=== PATIENT | female | born 1955 | race African-American/Black ===

== ENCOUNTER 2016-10-07 13:47 | Inpatient (IN) ==
[2016-10-07] MEDS ORDERED: ASPIRIN PO STA (13:59)
[2016-10-07 14:09] LABS: BLOOD TYPE ARTERIAL; DRAW SITE L BRACHIAL; METHB 0.8 % (0.0-1.5); O2(CT) 13.8 mL/dL (15.0-23.0); PO2(98.6) 54 mmHg (60-100); SAMPLE BLOOD; SAO2 70.6 % (95.0-100.0); THB 14.9 g/dL (11.5-17.4)
[2016-10-07 14:10] LABS: MANUAL DIFF NEEDED? NO
[2016-10-07] MEDS ORDERED: NITROGLYCERIN TOP ONE (14:11)
[2016-10-07] MEDS ORDERED: LASIX IV ONE (14:11)
[2016-10-07] MEDS ORDERED: MORPHINE ONE (14:15)
[2016-10-07] MEDS ORDERED: MORPHINE IV ONE (14:15)
[2016-10-07 14:21] LABS: BASO% 0.5 % (0.0-0.8); EOS# 0.34 X1000 (0.0-0.7); EOS% 2.2 % (0.0-10.0); HEMATOCRIT 49.1 % (37.0-47.0); HEMOGLOBIN 15.3 g/dL (12.0-16.0); IMM GRAN# 0.08 X1000 (0.0-0.04); IMM GRAN% 0.5 % (0.0-0.5); LYMPH# 8.95 X1000 (1.2-3.4); LYMPH% 58.9 % (20.5-51.1); MCH 31.7 PG (27-31); MCHC 31.2 g/dL (33-37); MCV 101.7 FL (81-99); MONO# 1.02 X1000 (0.11-0.59); MONO% 6.7 % (1.7-9.3); MPV 10.5 FL (7.4-10.4); NEUT% 31.2 % (42.2-75.2); PLT 319 X1000 (130-400); RBC 4.83 XMIL (4.2-5.4)
[2016-10-07 14:27] LABS: PCO2(98.6) 87 mmHg (35-45); pH(98.6) < 6.80 (7.35-7.45)
[2016-10-07 14:32] LABS: ALLEN TEST YES; MODALITY AMBU BAG
[2016-10-07 14:32] LABS: URINE SOURCE CATH
[2016-10-07 14:44] LABS: UR AMPHETAMINES QUAL NONE DETECTED (NONE DETECT); UR BARBITUATES QUAL NONE DETECTED (NONE DETECT); UR BENZODIAZEPIN QUAL NONE DETECTED (NONE DETECT); UR CANNABINOIDS QUAL PRESUMPTIVE POSITIVE (NONE DETECT); UR COCAINE QUAL NONE DETECTED (NONE DETECT); UR MDMA QUAL NONE DETECTED (NONE DETECT); UR METHADONE QUAL NONE DETECTED (NONE DETECT); UR METHAMPHETAMINE QUAL NONE DETECTED (NONE DETECT); UR OPIATES QUAL NONE DETECTED (NONE DETECT); UR OXYCODONE QUAL NONE DETECTED (NONE DETECT); UR PCP QUAL NONE DETECTED (NONE DETECT); UR TCA QUAL NONE DETECTED (NONE DETECT)
[2016-10-07 14:47] LABS: ALBUMIN 4.1 g/dL (3.5-5.0); CALCIUM 9.4 mg/dL (8.8-10.2); MAGNESIUM 2.4 mg/dL (1.5-2.7); POTASSIUM 3.5 mmol/L (3.5-5.1); TOTAL BILIRUBIN 0.2 mg/dL (0.20-1.00); TOTAL PROTEIN 8.1 g/dL (6.3-8.3)
[2016-10-07 14:47] LABS: BE -10.8 mmoll (-3.0-3.0); BLOOD TYPE ARTERIAL; DRAW SITE R RADIAL; METHB 1.1 % (0.0-1.5); O2(CT) 17.7 mL/dL (15.0-23.0); PCO2(98.6) 51 mmHg (35-45); PO2(98.6) 62 mmHg (60-100); SAMPLE BLOOD; SAO2 90.9 % (95.0-100.0); THB 15.3 g/dL (11.5-17.4); pH(98.6) 7.16 (7.35-7.45)
[2016-10-07 14:48] LABS: BILIRUBIN URINE NEGATIVE (NEGATIVE); BLOOD URINE 1+ (NEGATIVE); CLARITY CLEAR (CLEAR); COLOR YELLOW; LEUKOCYTES URINE NEGATIVE (NEGATIVE); NITRITE URINE NEGATIVE (NEGATIVE); UROBILINOGEN URINE NORMAL
--- NOTE | 2016-10-07 14:51 | PROVIDER DOCUMENTATION ---
HPI-General Adult - General Chief Complaint: Chest Pain Stated Complaint: N/V Time Seen by Provider: 10/07/16 14:00 Source: family Allergies/Adverse Reactions: Patient Allergies Allergy/AdvReac Type Severity Reaction Status Date / Time No Known Allergies Allergy Verified 05/21/13 03:45 - History of Present Illness -Gen Adult Nature of Presenting Problems: Pt is 61 y/o F presents to the ED with N/V. Pt's family member states Pt came in for N and V then patient stated having chest pain and collapsed and became unresponsive. Pt had blood sugar of 165 at 1402. Pt had a BP of 262/117 at 1405. Location of Pain/Injury: reports: chest Pain Radiation: reports: no radiation Quality of Pain: reports: pressure Severity: reports: moderate Onset/Duration: reports: abrupt Timing: reports: still present, intermittent Context/Activities at Onset: reports: light activity Modifying Factors: improves with: nothing Associated Symptoms: reports: chest pain, nausea, shortness of breath, vomiting . denies: arm pain, back/neck pain, cough, diarrhea, fever/chills, loss of appetite, sinus congestion/drainage Similar Symptoms Previously?: No Recently seen or treated by another doctor?: No Review of Systems - Adult - REVIEW OF SYSTEMS - ADULT Constitutional: denies: chills, fever Eyes: denies: blurred vision, double vision Ears, Nose, Mouth & Throat: denies: ear pain, nose pain, throat pain Cardiovascular: reports: chest pain, irregular heart rate (tachy). denies: heart murmur Respiratory: reports: shortness of breath. denies: cough, wheezing Gastrointestinal: reports: nausea, vomiting. denies: abdominal pain, diarrhea Genitourinary: denies: dysuria, hematuria Musculoskeletal: denies: bone pain, joint pain, neck pain Integumentary: denies: hives, itching Neurological: denies: dizziness/vertigo, headache/migraines Psychiatric: reports: no symptoms reported Endocrine: reports: no symptoms reported Hematologic/Lymphatic: reports: no symptoms reported Allergic/Immunologic: reports: no symptoms reported All Other Systems: Reviewed and Negative Past History - Adult - PAST MEDICAL HISTORY-ADULT Review of Records: reports: Nursing Assessment Review, Medications Reviewed, Social history reviewed & non-contributory. Major Childhood Illnesses: reports: denies history Cardiovascular: reports: denies history Respiratory: reports: denies history Gastrointestinal: reports: denies history Obstetrical/Gynecological: reports: denies history Genitourinary: reports: denies history Musculoskeletal: reports: denies history Neurological: reports: denies history Endocrine/Immune: reports: denies history Other Conditions: reports: denies history - PRIOR SURGERIES/PROCEDURES Surgical/Procedure History: reports: reviewed, not pertinent - IMMUNIZATION STATUS Childhood Immunizations: See Nurse Assessment Flu Vaccine: See Nurse Assessment - FAMILY HISTORY Family History: reviewed, not pertinent - SOCIAL HISTORY Smoking: cigarettes, less than 1 pack/day Provider spent 3-5 mins advising pt. on dangers of tobacco.: Discussed manners to quit use, and f/u contacts for add'l counseling. Substance Use: denies Living Situation: family Physical Exam-General - PHYSICAL EXAM-ADULT Initial Vital Signs Reviewed: Yes - CONSTITUTIONAL General Appearance: moderate distress. negative: appears well (ill in appearance) - EYES Eyes: PERRL/EOMI, pink conjunctivae - HEAD, EARS, NOSE, MOUTH & THROAT HENMT: normocephalic/atraumatic, normal ENT inspection. negative: moist mucous membranes (dry) - NECK Neck: non-tender, full range of motion, normal inspection - RESPIRATORY Respiratory: chest non-tender, lungs clear, respiratory distress, increased rate - CARDIOVASCULAR Cardiovascular: normal peripheral pulses, no edema, tachycardia - GASTROINTESTINAL (ABDOMEN) Abdominal Exam: normal bowel sounds, non tender, soft - LYMPHATIC Lymphatic: no adenopathy - MUSCULOSKELETAL Back Exam: normal inspection, no CVA tenderness, no vertebral tenderness Extremity: normal range of motion, non-tender, normal gait - SKIN Integumentary: normal color, normal turgor, warm/dry - PSYCHIATRIC Psych/Mental Status: disoriented x 3 Progress - PLAN OF CARE/RESULTS Progress/Plan/Lab Results: Laboratory Tests 10/07/16 10/07/16 10/07/16 14:04 14:04 14:04 WBC RBC Hgb Hct MCV MCH MCHC RDW Std Deviation Plt Count MPV Immature Gran % (Auto) Neut % (Auto) Lymph % (Auto) [place] % (Auto) Eos % (Auto) Baso % (Auto) Immature Gran # (Auto) Neut # (Auto) Lymph # (Auto) [place] # (Auto) Eos # (Auto) Baso # (Auto) PT INR APTT (Factor Assay) D-Dimer Specimen Type Sample Site pH pCO2 pO2 HCO3 Base Excess Oxyhemoglobin ABG O2 Sat (Calculated) ABG O2 Saturation ABG Carboxyhemoglobin ABG Methemoglobin Lit Test A-a O2 Difference Total Hemoglobin Lactate Liter Flow Blood Gas Modality FiO2 % Pressure Support Inspiratory BiPAP Expiratory BiPAP Sodium 139 Potassium 3.5 Chloride 99 Carbon Dioxide 13 L Anion Gap 27 BUN 20 Creatinine 1.3 H Estimated GFR/1.73 m2 42 BUN/Creatinine Ratio 15 Glucose 320 H Calculated Osmolality 292 Calcium 9.4 Magnesium 2.4 Total Bilirubin 0.20 AST 30 ALT 22 Alkaline Phosphatase 110 H Creatine Kinase 160 Troponin T < 0.010 [id number]-Unrydlhlgvy Pept 371 H Total Protein 8.1 Albumin 4.1 Globulin 4.0 Albumin/Globulin Ratio 1.0 Plasma Lactate Urine Source Urine Color Urine Clarity Urine pH Ur Specific Loyal Urine Protein Urine Ketones Urine Blood Urine Nitrite Urine Bilirubin Urine Urobilinogen Urine Microscopic RBC Urine WBC Urine Microscopic WBC Ur Epithelial Cells Urine Bacteria Urine Glucose Urine Opiates Screen Ur Oxycodone Screen Urine Methadone Screen Ur Barbituates Screen Ur Tricyclics Screen Ur Phencyclidine Scrn Ur Amphetamines Screen U Methamphetamines Scrn Urine MDMA Screen U Benzodiazepines Scrn Urine Cocaine Screen U Cannabinoids Screen 10/07/16 10/07/16 10/07/16 14:04 14:04 14:04 WBC 15.19 H RBC 4.83 Hgb 15.3 Hct 49.1 H MCV 101.7 H MCH 31.7 H MCHC 31.2 L RDW Std Deviation 12.6 Plt Count 319 MPV 10.5 H Immature Gran % (Auto) 0.5 Neut % (Auto) 31.2 L Lymph % (Auto) 58.9 H [place] % (Auto) 6.7 Eos % (Auto) 2.2 Baso % (Auto) 0.5 Immature Gran # (Auto) 0.08 H Neut # (Auto) 4.73 Lymph # (Auto) 8.95 H [place] # (Auto) 1.02 H Eos # (Auto) 0.34 Baso # (Auto) 0.07 PT 14.6 INR 1.11 APTT (Factor Assay) 29.9 D-Dimer 1.07 H Specimen Type Sample Site pH pCO2 pO2 HCO3 Base Excess Oxyhemoglobin ABG O2 Sat (Calculated) ABG O2 Saturation ABG Carboxyhemoglobin ABG Methemoglobin Lit Test A-a O2 Difference Total Hemoglobin Lactate Liter Flow Blood Gas Modality FiO2 % Pressure Support Inspiratory BiPAP Expiratory BiPAP Sodium Potassium Chloride Carbon Dioxide Anion Gap BUN Creatinine Estimated GFR/1.73 m2 BUN/Creatinine Ratio Glucose Calculated Osmolality Calcium Magnesium Total Bilirubin AST ALT Alkaline Phosphatase Creatine Kinase Troponin T [id number]-Eazlbsjkdmb Pept Total Protein Albumin Globulin Albumin/Globulin Ratio Plasma Lactate 11.6 H Urine Source Urine Color Urine Clarity Urine pH Ur Specific Loyal Urine Protein Urine Ketones Urine Blood Urine Nitrite Urine Bilirubin Urine Urobilinogen Urine Microscopic RBC Urine WBC Urine Microscopic WBC Ur Epithelial Cells Urine Bacteria Urine Glucose Urine Opiates Screen Ur Oxycodone Screen Urine Methadone Screen Ur Barbituates Screen Ur Tricyclics Screen Ur Phencyclidine Scrn Ur Amphetamines Screen U Methamphetamines Scrn Urine MDMA Screen U Benzodiazepines Scrn Urine Cocaine Screen U Cannabinoids Screen 10/07/16 10/07/16 10/07/16 14:06 14:18 14:18 WBC RBC Hgb Hct MCV MCH MCHC RDW Std Deviation Plt Count MPV Immature Gran % (Auto) Neut % (Auto) Lymph % (Auto) [place] % (Auto) Eos % (Auto) Baso % (Auto) Immature Gran # (Auto) Neut # (Auto) Lymph # (Auto) [place] # (Auto) Eos # (Auto) Baso # (Auto) PT INR APTT (Factor Assay) D-Dimer Specimen Type ARTERIAL Sample Site L BRACHIAL pH < 6.80 L* pCO2 87 H* pO2 54 L HCO3 Base Excess Oxyhemoglobin 65.7 L* ABG O2 Sat (Calculated) 13.8 L ABG O2 Saturation 70.6 L ABG Carboxyhemoglobin 6.10 H* ABG Methemoglobin 0.8 Lit Test YES A-a O2 Difference 550.0 Total Hemoglobin 14.9 Lactate 14.80 H* Liter Flow 15.0 Blood Gas Modality AMBU BAG FiO2 % 100.0 Pressure Support Inspiratory BiPAP Expiratory BiPAP Sodium Potassium Chloride Carbon Dioxide Anion Gap BUN Creatinine Estimated GFR/1.73 m2 BUN/Creatinine Ratio Glucose Calculated Osmolality Calcium Magnesium Total Bilirubin AST ALT Alkaline Phosphatase Creatine Kinase Troponin T [id number]-G-Uhsqhvtjmsm Pept Total Protein Albumin Globulin Albumin/Globulin Ratio Plasma Lactate Urine Source CATH Urine Color YELLOW Urine Clarity CLEAR Urine pH 6.0 Ur Specific Loyal 1.020 Urine Protein 3+(500 mg/dL) A Urine Ketones NEGATIVE Urine Blood 1+ A Urine Nitrite NEGATIVE Urine Bilirubin NEGATIVE Urine Urobilinogen NORMAL Urine Microscopic RBC <10 Urine WBC NEGATIVE Urine Microscopic WBC <10 Ur Epithelial Cells <10 Urine Bacteria 1+ Urine Glucose 1+(100 mg/dL) A Urine Opiates Screen NONE DETECTED Ur Oxycodone Screen NONE DETECTED Urine Methadone Screen NONE DETECTED Ur Barbituates Screen NONE DETECTED Ur Tricyclics Screen NONE DETECTED Ur Phencyclidine Scrn NONE DETECTED Ur Amphetamines Screen NONE DETECTED U Methamphetamines Scrn NONE DETECTED Urine MDMA Screen NONE DETECTED U Benzodiazepines Scrn NONE DETECTED Urine Cocaine Screen NONE DETECTED U Cannabinoids Screen PRESUMPTIVE POSITIVE A 10/07/16 14:38 WBC RBC Hgb Hct MCV MCH MCHC RDW Std Deviation Plt Count MPV Immature Gran % (Auto) Neut % (Auto) Lymph % (Auto) [place] % (Auto) Eos % (Auto) Baso % (Auto) Immature Gran # (Auto) Neut # (Auto) Lymph # (Auto) [place] # (Auto) Eos # (Auto) Baso # (Auto) PT INR APTT (Factor Assay) D-Dimer Specimen Type ARTERIAL Sample Site R RADIAL pH 7.16 L* pCO2 51 H* pO2 62 HCO3 16.0 L Base Excess -10.8 L Oxyhemoglobin 82.2 L* ABG O2 Sat (Calculated) 17.7 ABG O2 Saturation 90.9 L ABG Carboxyhemoglobin 8.50 H* ABG Methemoglobin 1.1 Lit Test YES A-a O2 Difference 302.0 Total Hemoglobin 15.3 Lactate 6.80 H* Liter Flow Blood Gas Modality BI PAP FiO2 % 60.0 Pressure Support 10.00 Inspiratory BiPAP 16.0 Expiratory BiPAP 6.0 Sodium Potassium Chloride Carbon Dioxide Anion Gap BUN Creatinine Estimated GFR/1.73 m2 BUN/Creatinine Ratio Glucose Calculated Osmolality Calcium Magnesium Total Bilirubin AST ALT Alkaline Phosphatase Creatine Kinase Troponin T Fim-Z-Vqmffawgmke Pept Total Protein Albumin Globulin Albumin/Globulin Ratio Plasma Lactate Urine Source Urine Color Urine Clarity Urine pH Ur Specific Loyal Urine Protein Urine Ketones Urine Blood Urine Nitrite Urine Bilirubin Urine Urobilinogen Urine Microscopic RBC Urine WBC Urine Microscopic WBC Ur Epithelial Cells Urine Bacteria Urine Glucose Urine Opiates Screen Ur Oxycodone Screen Urine Methadone Screen Ur Barbituates Screen Ur Tricyclics Screen Ur Phencyclidine Scrn Ur Amphetamines Screen U Methamphetamines Scrn Urine MDMA Screen U Benzodiazepines Scrn Urine Cocaine Screen U Cannabinoids Screen Orders Category Date Time Status Cardiac Monitoring DIRECTED Care 10/07/16 14:00 Active Oxygen Therapy- ED Nursing DIRECTED Care 10/07/16 14:00 Active Saline Loc NOW Care 10/07/16 14:00 Active CHEST-PORTABLE [RAD] Stat Exams 10/07/16 14:00 Draft HEAD W/O CONTRAST [CT] Stat Exams 10/07/16 14:08 Taken LUNG SCAN / VQ [NM] Stat Exams 10/07/16 15:11 Ordered ABG [RESP] Routine Lab 10/07/16 14:06 Completed ABG [RESP] Routine Lab 10/07/16 14:38 Completed BLOOD CULTURE [BLDCUL] Stat Lab 10/07/16 14:13 Ordered CBC WITH ELECTRONIC DIFF [HEME] Stat Lab 10/07/16 14:04 Completed CK PROFILE [SP CHEM] Stat Lab 10/07/16 14:04 Completed COMPREHENSIVE METABOLIC PANEL [CHEM] Stat Lab 10/07/16 14:04 Completed D-DIMER PL [COAG] Stat Lab 10/07/16 14:04 Completed LACTATE, PLASMA [CHEM] Stat Lab 10/07/16 14:04 Completed MAGNESIUM [CHEM] Stat Lab 10/07/16 14:04 Completed PRO B-NATRIURETIC PEPTIDE Stat Lab 10/07/16 14:04 Completed PROTIME WITH INR PL [COAG] Stat Lab 10/07/16 14:[address] [COAG] Stat Lab 10/07/16 14:04 Completed TROPONIN T Stat Lab 10/07/16 14:[address] W/POSS RFLX CULT [URINALYSIS] Stat Lab 10/07/16 14:18 Completed URINE DRUG SCREEN PL Stat Lab 10/07/16 14:18 Completed 0.9% Sodium Chloride Inj [Ns] 1,000 ml Med 10/07/16 15:14 Active IV 999 mls/hr Albuterol 2.5MG/Ipratrop 0.5MG [Duoneb (A & A)] Med 10/07/16 15:14 Discontinued 3 ml INH NOW ONE Aspirin Med 10/07/16 13:59 Discontinued 325 mg PO STAT STA Azithromycin 500 mg/Ns [Zithromax 500 mg/Ns] 250 ml Med 10/07/16 15:13 Active IV NOW CefTRIAXONE 1 GM/NS [Rocephin 1 gm/Ns] 50 ml Med 10/07/16 15:12 Active IV NOW Furosemide [Lasix] Med 10/07/16 14:11 Discontinued 80 mg IV NOW ONE Morphine Med 10/07/16 14:15 Discontinued 2 mg .ROUTE .STK-MED ONE Morphine Med 10/07/16 14:15 Discontinued 2 mg IV NOW ONE Nitroglycerin Med 10/07/16 14:11 Discontinued 1 inch TOP NOW ONE Aerosol Treatments Routine Oth 10/07/16 15:14 Active Aerosol Treatments Stat Oth 10/07/16 15:14 Active EKG [EKG] Routine Ther 10/07/16 14:33 Ordered EKG [EKG] Stat Ther 10/07/16 14:00 Ordered EKG [EKG] Stat Ther 10/07/16 14:38 Ordered Venous U/S Bilateral Legs [CV] Routine Ther 10/07/16 15:11 Ordered Vital Signs - 24 hr 10/07/16 10/07/16 14:00 14:30 Pulse Rate 130 H 113 H Respiratory 33 H 33 H Rate Blood Pressure 181/91 185/102 O2 Sat by Pulse 57 L 94 L Oximetry - EKG 1 Time of EKG reading by physician:: 14:03 EKG Read and Signed by:: Ryan Deleon EKG Interpretation (*Must complete 3 of following elements*): Abnormal Rate: 129 Rhythm: sinus tachycardia Comments: marked ST abnormality, possible inferior subendocardial injury 2 Time of EKG reading by physician:: 14:32 EKG Read and Signed by:: Ryan Deleno EKG Interpretation (*Must complete 3 of following elements*): Abnormal Rate: 113 Rhythm: sinus tachycardia Comments: biatrial enlargement; ST & T wave abnormality, consider inferior ischemia - XRAY 1 XRAY: Bilateral XRAY Study: Chest Impression: Abnormal XRAY Interpretation: dense bilateral alveolar infiltrates Departure - Departure Time of Disposition Order: 15:26 DIAGNOSIS: Pulmonary edema Qualifiers: Chronicity: acute Qualified Code(s): J81.0 - Acute pulmonary edema HTN (hypertension) Qualifiers: Hypertension type: unspecified secondary hypertension Qualified Code(s): I15.9 - Secondary hypertension, unspecified Disposition: ADMITTED INPATIENT 09 Certified Medical Emergency: Emergent Condition: Poor Additional Instructions: ED Follow Up Instructions: You have been treated by a care provider in the Emergency Department. These instructions are being provided to you so you can have an understanding of how to care for yourself upon discharge. Upon discharge from the Emergency Department, you are responsible for making arrangements for follow-up care by a physician of your choice. Take all prescribed medications as directed. Return to the Emergency Department immediately for any new or worsening symptoms. You may call the Physician Referral phone number at [phone] to obtain a list of Physicians who are taking new patients. Referrals: None,PCP [Primary Care Provider] - Attestation - Scribe Verification/Attestation Scribe:: Pauline Roy Acting as Scribe for:: Ryan Deleon Scribe documention review:: This chart was documented by a scribe and accurately reflects the service the provider performed and the decisions made by the provider.
--- NOTE | 2016-10-07 14:57 | Diag Imaging Result Document ---
PROCEDURE NAME: CHEST-PORTABLE - 10/07/2016 CHEST SINGLE VIEW: INDICATION: Shortness of breath. FINDINGS: There are dense bilateral alveolar infiltrates. There is cardiomegaly. No definite effusion. There are postsurgical changes of the lower cervical spine. IMPRESSION: Dense bilateral alveolar infiltrates.
[2016-10-07 15:04] LABS: URINE EPITHELIAL CELLS <10 /HPF (<10); URINE RBC <10 /HPF (<10); URINE WBC <10 /HPF (<10)
[2016-10-07 15:05] LABS: INR 1.11 (0.86-1.15); PROTIME 14.6 Seconds (12.1-15.5)
[2016-10-07 15:06] LABS: PTT PL 29.9 Seconds (22.6-43.9)
[2016-10-07 15:10] LABS: ALLEN TEST YES; MODALITY BI PAP
[2016-10-07] MEDS ORDERED: ROCEPHIN 1 GM/NS 50 ML IV ONE (15:12)
[2016-10-07] MEDS ORDERED: ZITHROMAX 500 MG/NS 250 ML IV ONE (15:13)
[2016-10-07] MEDS ORDERED: DUONEB (A & A) INH ONE (15:14)
[2016-10-07] MEDS ORDERED: NS 1,000 ML IV ONE (15:14)
--- NOTE | 2016-10-07 15:25 | Diag Imaging Result Document ---
PROCEDURE NAME: HEAD W/O CONTRAST - 10/07/[address] SCAN OF THE BRAIN: INDICATION: Altered mental status. FINDINGS: There are no extra-axial collections. There is no acute infarct or hemorrhage. No hydrocephalus. No midline shift or mass effect. IMPRESSION: No acute intracranial abnormality is appreciated.
[2016-10-07] MEDS ORDERED: ZOFRAN IV ONE (16:32)
[2016-10-07] MEDS ORDERED: ZOFRAN ONE (16:33)
--- NOTE | 2016-10-07 18:27 | HISTORY AND PHYSICAL ---
PRIMARY CARE PHYSICIAN: None. CHIEF COMPLAINT: She came into the emergency room with complaints of nausea and vomiting. She then stated she was having some chest discomfort and collapsed, and became unresponsive. HISTORY OF PRESENTING ILLNESS: This is a 61-year-old, female who presented to [facility] ER with family members and came in for some nausea and vomiting. She then began having some chest discomfort and collapsed in the emergency waiting room and became unresponsive. She had a blood pressure at that time of 262/117, blood sugar was 165. Workup in the ER initially showed a chest x-ray with dense bilateral alveolar infiltrates. White blood cell count was 15.19. D-dimer was 1.07. Initial ABG showed a pH of less than 6.80, pCO2 of 87, pCO2 of 54 and that was on 100% FiO2 with Ambu bag. She had a creatinine of 1.3, glucose of 320, plasma lactate of 11.6. Urinalysis was essentially negative. Urine drug screen was positive for cannabinoids. When she arrived to the emergency room, her heart rate was 130 with respirations of 33, saturating 57% on room air. She is currently on BiPAP saturating at 94%. She is being admitted to the Intensive Care Unit for further evaluation and treatment. PAST MEDICAL HISTORY: None. PAST SURGICAL HISTORY: Neck surgery. FAMILY HISTORY: Noncontributory. SOCIAL HISTORY: She lives alone. She smokes 1 pack of cigarettes a day and has done so for the past 40+ years. Denied any alcohol or illicit drug use. ALLERGIES: She has no known drug allergies. HOME MEDICATIONS: We will verify any home medications. It is not clear that she has been taking any as she does not have a primary care physician at this time. LABORATORY DATA: Showed a white blood cell count of 15.19, hemoglobin 15.3, hematocrit 49.1, platelets 319,000. PT and INR 14.6 and 1.11 with a D-dimer of 1.07. Initial ABG showed a pH of less than 6.80, pCO2 of 87, PO2 of 54 and that was on 100% FiO2 Ambu bag. Repeat approximately 38 minutes later showed a pH of 7.16, pCO2 of 51, PO2 62, bicarb of 16, this was on BiPAP. Sodium was 139, potassium 3.5, chloride 99, CO2 13, BUN of 20, creatinine 1.3, and glucose 320. Creatine kinase of 160, troponin less than 0.010, pro BNP of 371, plasma lactate of 11.6. Urinalysis was essentially negative. Urine drug screen was presumptive positive for cannabinoids. Chest x-ray showed bilateral dense alveolar infiltrates. Head CT: No acute intracranial abnormality was appreciated. REVIEW OF SYSTEMS: She states she was positive for shortness of breath but denied all other review of systems at this time. PHYSICAL EXAMINATION: VITAL SIGNS: On arrival, pulse was 130, respirations 33, blood pressure 181/91, saturating 57% on room air. Current heart rate 97. Respirations 29. O2 saturation was 94% on BiPAP. Last documented blood pressure was 185/102. GENERAL: This is a 61-year-old, female who is lying in the bed, answers questions appropriately. HEENT: Normocephalic and atraumatic. Pupils are equal, round, reactive to light. Extraocular movements are intact. Oropharynx and nares are clear. NECK: Supple. LUNGS: Clear to auscultation bilaterally with equal lung expansion and chest wall movement. She was noted to be tachypneic when she first came in. HEART: Regular rate and rhythm. No murmurs, rubs, or gallops. ABDOMEN: Soft, nontender, nondistended. Bowel sounds are present x4 quadrants. EXTREMITIES: No clubbing, cyanosis, or edema. NEUROLOGICAL: Cranial nerves 2-12 are grossly intact. ASSESSMENT: 1. Acute respiratory failure. 2. Bilateral pneumonia. 3. Acute kidney injury. 4. Elevated D-dimer. 5. Hyperglycemia. 6. Tobacco abuse. 7. Hypertension. PLAN: 1. She is being admitted to the Intensive Care Unit at [facility]. We will obtain a V/Q scan in the ER and bilateral lower extremity venous Dopplers in the ER. She has been given a normal saline bolus of 1000 mL, then we will go to 75 mL an hour. 2. Rocephin 1 g IV q.24 hours. 3. Levaquin 750 mg IV q.24 hours. 4. Flagyl 500 mg IV q.8 hours. 5. DuoNebs q.4 hours. We will consult Pulmonology. 6. Recheck a CBC and BMP in the a.m. and check a hemoglobin A1c. Place on pattern blood sugars with sliding scale insulin. Dictated by MALENA Hernandez for Cuco Oswald MD
[2016-10-07 19:22] LABS: BE 0.1 mmoll (-3.0-3.0); BLOOD TYPE ARTERIAL; DRAW SITE R RADIAL; METHB 1.2 % (0.0-1.5); O2(CT) 16.5 mL/dL (15.0-23.0); PO2(98.6) 50 mmHg (60-100); SAMPLE BLOOD; SAO2 87.3 % (95.0-100.0); THB 14.5 g/dL (11.5-17.4); pH(98.6) 7.33 (7.35-7.45)
[2016-10-07 19:26] LABS: ALLEN TEST YES; MODALITY CANNULA; PCO2(98.6) 51 mmHg (35-45)
--- NOTE | 2016-10-07 19:30 | EKG Report ---
Test Performed on : 10/07/2016 2:03:54 PM Test Reason : CHEST PAIN Blood Pressure : / mmHG Vent. Rate : 129 BPM Atrial Rate : 129 BPM P-R Int : 112 ms QRS Dur : 076 ms QT Int : 396 ms P-R-T Axes : 059 064 -35 degrees QTc Int : 580 ms Sinus tachycardia. Marked ST abnormality, possible inferior subendocardial injury Abnormal ECG No previous ECGs available Unconfirmed Result
--- NOTE | 2016-10-07 19:30 | EKG Report ---
Test Performed on : 10/07/2016 2:32:33 PM Test Reason : emboli Blood Pressure : / mmHG Vent. Rate : 113 BPM Atrial Rate : 113 BPM P-R Int : 138 ms QRS Dur : 076 ms QT Int : 372 ms P-R-T Axes : 064 056 -87 degrees QTc Int : 510 ms Sinus tachycardia. Biatrial enlargement ST & T wave abnormality, consider inferior ischemia Abnormal ECG When compared with ECG of 07-OCT-2016 14:03, (Unconfirmed) Nonspecific T wave abnormality no longer evident in Anterior leads Unconfirmed Result
[2016-10-07] MEDS ORDERED: TYLENOL PO PRN (20:52)
[2016-10-07] MEDS ORDERED: NS 1,000 ML IV SCH (20:52)
[2016-10-07] MEDS: DUONEB (A & A) INH SCH ×2 (21:04→22:33)
[2016-10-07] MEDS: HUMALOG (PARKWAY) SUBQ SCH (21:07)
[2016-10-07 21:21] LABS: HEMOGLOBIN A1C 4.7 % (4.8-6.0)
--- NOTE | 2016-10-07 21:22 | Diag Imaging Result Document ---
PROCEDURE NAME: LUNG SCAN / VQ - 10/07/2016 NUCLEAR MEDICINE V/Q SCAN: COMPARISON: Plain radiograph dated 10/07/2016. No prior V/Q scan is available for comparison. FINDINGS: 40.4 mCi of aerosolized technetium-99m DT PA was administered for the ventilation portion of the scan. 5.7 mCi of IV technetium-99m MAA was administered for the perfusion portion of the scan. On the perfusion portion of the scan, there are no discrete defects. There is somewhat heterogeneous distribution of the aerosolized radiotracer on the ventilation portion of the scan. This is probably due to the diffuse airway infiltrates that are seen on the chest radiograph. IMPRESSION: Low probability of pulmonary embolism.
[2016-10-07] MEDS: FLAGYL 500 MG/NS 100 ML IV SCH (21:24)
[2016-10-07] MEDS: LOVENOX SUBQ SCH (21:25)
[2016-10-07] MEDS: LEVAQUIN 750 MG/D5W 150 ML IV SCH (21:25)
[2016-10-07] MEDS: PRINIVIL PO SCH (21:25)
[2016-10-08] MEDS: DUONEB (A & A) INH SCH ×6 (03:39→23:16)
[2016-10-08] MEDS: FLAGYL 500 MG/NS 100 ML IV SCH ×3 (05:54→20:57)
[2016-10-08 05:59] LABS: MANUAL DIFF NEEDED? NO
[2016-10-08 06:18] LABS: BASO% 0.1 % (0.0-0.8); HEMATOCRIT 37.6 % (37.0-47.0); IMM GRAN# 0.03 X1000 (0.0-0.04); IMM GRAN% 0.2 % (0.0-0.5); LYMPH# 1.52 X1000 (1.2-3.4); LYMPH% 10.9 % (20.5-51.1); MCH 31.2 PG (27-31); MCHC 31.9 g/dL (33-37); MCV 97.7 FL (81-99); MONO# 0.71 X1000 (0.11-0.59); MONO% 5.1 % (1.7-9.3); MPV 9.8 FL (7.4-10.4); NEUT% 83.7 % (42.2-75.2); PLT 251 X1000 (130-400); RBC 3.85 XMIL (4.2-5.4)
[2016-10-08] MEDS: HUMALOG (PARKWAY) SUBQ SCH (06:22)
[2016-10-08 06:28] LABS: AGAP 9; BUN 20 mg/dL (8-22); CALCIUM 8.2 mg/dL (8.8-10.2); CHLORIDE 105 mmol/L (98-107); COSMO 280; POTASSIUM 3.6 mmol/L (3.5-5.1); SODIUM 139 mmol/L (136-145); TCO2 26 mmol/L (25-35)
[2016-10-08] MEDS ORDERED: HUMALOG DOSE (PARKWAY) SUBQ SCH (06:57)
[2016-10-08] MEDS: PRINIVIL PO SCH (08:22)
--- NOTE | 2016-10-08 11:24 | CONSULTATION ---
DATE OF CONSULTATION: 10/07/2016 ATTENDING PHYSICIAN: Dr. Oswald. REASON FOR CONSULTATION: COPD with exacerbation, hypercapnic respiratory failure. CHIEF COMPLAINT: Shortness of breath and became unresponsive. REVIEW OF HISTORY: Ms. Barksdale is a 61-year-old female with history of active tobacco dependency, who has not seen any physician in the past several years who was brought in by family members with history of nausea and vomiting. She complained of chest discomfort and became unresponsive in the emergency room. Her blood pressure was noted to be 262/117. ABG was performed , which showed a pH of 6.8. Chest x-ray showed bilateral basilar infiltrates. Patient was placed on later on BiPAP. Repeat ABG on BiPAP showed improvement in hypercapnic respiratory failure with pH of 7.2. Patient was more awake when I saw her. She complained of shortness of breath. This has been worse for the past few days. Smokes about a pack a day since the age of 17. PAST MEDICAL HISTORY: None. PAST SURGICAL HISTORY: Neck surgery. FAMILY HISTORY: Unremarkable. SOCIAL HISTORY: Lives alone. Smokes 1 pack a day since the age of 17. LABS: White count 81317, hemoglobin 15, hematocrit 49, platelets 319,000. ABG initially was 6.8, pCO2 87, PO2 54. Repeat ABG showed pH of 7.16, pCO2 51, PO2 62, bicarb 16. Sodium 139, potassium 3.5, chloride 99, CO2 13, BUN 20, creatinine 1.3. Chest x-ray showed bilateral dense alveolar infiltrates. Urinalysis is positive for marijuana. CT head was negative. REVIEW OF SYSTEMS: No fever. Denies any chest pain. No nausea. No vomiting. The rest of the 10 point review of systems is negative otherwise. PHYSICAL EXAMINATION: Blood pressure was 191/71, oxygen saturation was 94% on 3 L. Pulse 113, respiratory rate is 13.General Examination: Chronically ill-appearing, in mild respiratory distress. Lungs: Decreased air entry. No rhonchi or wheezing noted. Heart: S1, S2 heard. Extremities: Shows stage 4 clubbing with padded beaking. Abdomen: Soft. Extremities: No edema. BABY SITTER: No confusion. ASSESSMENT AND PLAN: 1. Acute hypoxic hypercapnic respiratory failure. 2. Bilateral pneumonia. 3. Tobacco use. 4. Acute kidney injury. PLAN: Reviewed the ABG. The patient is awaiting to get a V/Q scan. He had PE and DVT work up which was negative. Continue antibiotics for treatment of pneumonia. Rocephin, Levaquin and Flagyl as appropriate. Continue bronchodilators. Use supplemental oxygen to keep saturation above 88. Patient surprisingly is more awake even though her ABG shows significant acidosis. We will use BiPAP at night as needed. For tobacco use, Continue duoNeb nebulization treatments. Will need PFTs as an outpatient. Nicotine patch if needed. For acute kidney injury I will place on management as per Dr. Oswald. [facility], [place]
--- NOTE | 2016-10-08 11:44 | PROGRESS NOTE ---
DATE: 10/08/2016 SUBJECTIVE: The patient is up in the bathroom, states she is feeling much better. OBJECTIVE: Vital signs: Temperature is 99.1, pulse 76, respirations 18, blood pressure 147/55 and was saturating 100% on 3 L via nasal cannula. General: This is a 61-year-old female who is in the bathroom at this time. No complaints voiced. HEENT: Normocephalic and atraumatic. Pupils are equal, round and reactive to light. Extraocular movements were intact. The oropharynx and nares are clear. Neck is supple. Lungs are clear to auscultation bilaterally with equal lung expansion and chest wall movement. Heart with regular rate and rhythm. No murmurs, rubs or gallops. Abdomen: Soft, nontender and nondistended. Bowel sounds are present x4 quadrants. Extremities: No cyanosis, clubbing or edema. Neurologic: The cranial nerves II through XII appear grossly intact. DIAGNOSTIC DATA: White blood cell count of 13.94, hemoglobin 12, hematocrit 37.6, platelets 251. Sodium is 139, potassium 3.6, chloride 105, CO2 is 26, BUN of 20, creatinine 0.8, glucose of 93. VQ lung scan showed low probability of a pulmonary embolism. Blood cultures x2 are pending. ASSESSMENT AND PLAN: 1. Acute respiratory failure, improved. We will continue her O2 per protocol to keep saturations greater than 90%. 2. Bilateral pneumonia. We will continue her IV antibiotics, DuoNebs q.4 hours. Pulmonology is following. 3. Acute kidney injury, appears resolved. We will recheck a BMP in the a.m. 4. Elevated D-dimer. VQ scan was negative. We will continue her DVT prophylaxis with Lovenox 40 mg subcutaneously q.24. 5. Hyperglycemia, appears resolved. Her hemoglobin A1c was 4.7. We will stop her routine pattern blood sugars and sliding scale insulin. 6. Hypertension. Stable. 7. Tobacco abuse. Continue to discuss smoking cessation in this patient. Dictated by MALENA Hernandez for Sacha Collins MD
[2016-10-08] MEDS: NORCO-7.5 PO PRN ×2 (17:28→20:57)
[2016-10-08] MEDS: ROCEPHIN 1 GM/NS 50 ML IV SCH (17:30)
[2016-10-08] MEDS: LOVENOX SUBQ SCH (20:56)
[2016-10-08] MEDS: LEVAQUIN 750 MG/D5W 150 ML IV SCH (20:57)
[2016-10-09] MEDS: DUONEB (A & A) INH SCH ×6 (02:45→23:24)
[2016-10-09] MEDS: FLAGYL 500 MG/NS 100 ML IV SCH ×4 (03:45→20:50)
[2016-10-09] MEDS: NORCO-7.5 PO PRN ×3 (03:56→20:51)
--- NOTE | 2016-10-09 05:52 | PROGRESS NOTE ---
DATE: 10/08/2016 SUBJECTIVE: Patient seen and examined. No acute events overnight. Shortness of breath and wheezing have improved to a certain extent. PHYSICAL EXAMINATION: Vital Signs: Temperature 99 degrees, pulse 76, respiratory rate 18, blood pressure 147, oxygen saturation 100% on 3 L. General: -[place] Islander in mild respiratory distress. Head and Neck: Normocephalic, atraumatic. Heart: S1-S2 heard. Lungs: Decreased air entry. No wheezing or rhonchi heard. Abdomen: Soft. Extremities: No edema. LABS: White count 13,000, hemoglobin 12, hematocrit 34,. Electrolytes within normal limits. V/Q scan low probability. Blood culture is pending. ASSESSMENT AND PLAN: 1. Acute hypoxic, hypercapnic respiratory failure. 2. Bilateral pneumonia. 3. Acute kidney injury. 4. Possible chronic obstructive pulmonary disease. 5. History of tobacco dependency. PLAN: Continue antibiotics and DuoNeb as well as low-dose steroids. Wean off oxygen if saturation is above 88-90%. Recommend smoking cessation. He will need outpatient evaluation for COPD and appropriate treatment.
[2016-10-09 06:25] LABS: MANUAL DIFF NEEDED? NO
[2016-10-09 06:33] LABS: BASO% 0.3 % (0.0-0.8); EOS# 0.02 X1000 (0.0-0.7); EOS% 0.3 % (0.0-10.0); HEMATOCRIT 36.1 % (37.0-47.0); HEMOGLOBIN 11.2 g/dL (12.0-16.0); IMM GRAN# 0.02 X1000 (0.0-0.04); IMM GRAN% 0.3 % (0.0-0.5); LYMPH# 1.53 X1000 (1.2-3.4); LYMPH% 20.5 % (20.5-51.1); MCH 30.9 PG (27-31); MCV 99.4 FL (81-99); NEUT% 70.6 % (42.2-75.2); PLT 224 X1000 (130-400); RBC 3.63 XMIL (4.2-5.4)
[2016-10-09 06:41] LABS: AGAP 7; BUN 15 mg/dL (8-22); CALCIUM 8.7 mg/dL (8.8-10.2); CHLORIDE 105 mmol/L (98-107); COSMO 278; POTASSIUM 3.2 mmol/L (3.5-5.1); SODIUM 139 mmol/L (136-145); TCO2 27 mmol/L (25-35)
[2016-10-09] MEDS: PRINIVIL PO SCH (08:01)
--- NOTE | 2016-10-09 13:05 | Diag Imaging Result Document ---
PROCEDURE NAME: CHEST-PORTABLE - 10/09/2016 SINGLE FRONTAL RADIOGRAPH OF THE CHEST: COMPARISON: 10/07/2016. FINDINGS: Inspiration is suboptimal. Bilateral diffuse infiltrates persist. There does appear to be some improvement at the upper lung zones. No new consolidations are identified. Cardiac silhouette is stable. IMPRESSION: Suggestion of slight interval improvement.
[2016-10-09] MEDS ORDERED: KLOR-CON PO ONE (14:26)
[2016-10-09] MEDS: ROCEPHIN 1 GM/NS 50 ML IV SCH (15:09)
[2016-10-09] MEDS: ZOFRAN IV PRN ×2 (15:26→20:51)
--- NOTE | 2016-10-09 15:45 | PROGRESS NOTE ---
DATE: 10/09/2016 SUBJECTIVE: Patient has no focal complaints. OBJECTIVE: Vital signs: Blood pressure 183/87, heart rate 83, respiratory rate 18, temperature 99.3 degrees, 93% on 3 L, temperature of 101.2 degrees yesterday afternoon but none since then. Cardiovascular: Regular rate, rhythm. Pulmonary: Bilateral breath sounds. Clear to auscultation. GI: Soft, nontender, nondistended. Bowel sounds are positive. Lungs: Rales at the bases diminished at the bases. DATA: White count down to 7, hemoglobin and hematocrit 11, 36, platelets 224,000. Chemistries, potassium is 3.2. PROBLEM LIST: 1. Acute respiratory failure. She seems to be improving although she is still requiring oxygen. X-rays also improving. She is on broad-spectrum antibiotics. 2. Interstitial pneumonia. She is on Rocephin and Levaquin and Flagyl, we are just going to leave her on these antibiotics, she is on day 2 of Rocephin, day 3 of Flagyl and Levaquin, she is on pulmonary treatments, DVT prophylaxis. Disposition. We need to start working on ambulating her, working on getting her up and around. She may need home oxygen. Hopefully discharge next 1-2 days. 3. Hypokalemia. Will supplement and follow.
--- NOTE | 2016-10-09 20:43 | PROGRESS NOTE ---
DATE: 10/09/2016 SUBJECTIVE: Patient seen and examined in the morning. No acute events overnight. Denies any significant shortness of breath, cough or wheezing. REVIEW OF SYSTEMS: Negative for any fevers, no chest pain. GI. No nausea, no vomiting. PHYSICAL EXAM: Vitals: Blood pressure 183/87, heart rate 83, respiratory rate 18, temperature 99 degrees, oxygen saturation 93% on 3 L. General: Not in significant distress. Lungs: Clear. Cardiac: Regular rate and rhythm. LABS: Reviewed. White count is normal. Chemistry within normal limits. ASSESSMENT AND PLAN: 1. Acute hypoxic hypercapnic respiratory failure. 2. Pneumonia. 3. Hypokalemia. PLAN: Patient clinically has improved. Continue broad-spectrum antibiotics, nebulization treatments. Will need evaluation and workup for COPD as well as hypoxic respiratory failure as an outpatient. Recommend smoking cessation with discharge.
[2016-10-09] MEDS: LEVAQUIN 750 MG/D5W 150 ML IV SCH (20:51)
[2016-10-09] MEDS: LOVENOX SUBQ SCH (20:51)
[2016-10-10 00:19] LABS: URINE CULTURE PL NEEDED? YES
[2016-10-10] MEDS ORDERED: NS 250 ML ONE (03:08)
[2016-10-10] MEDS: FLAGYL 500 MG/NS 100 ML IV SCH ×3 (03:12→12:55)
[2016-10-10] MEDS: NORCO-7.5 PO PRN (03:12)
[2016-10-10] MEDS: DUONEB (A & A) INH SCH ×4 (04:19→15:17)
[2016-10-10 06:58] LABS: HEMATOCRIT 35.9 % (37.0-47.0); MCH 30.6 PG (27-31); MCHC 30.6 g/dL (33-37); MCV 99.7 FL (81-99); MPV 10.5 FL (7.4-10.4); RBC 3.6 XMIL (4.2-5.4)
--- NOTE | 2016-10-10 07:14 | Extremity Venous Study ---
PROCEDURE NAME: Venous U/S Bilateral Legs - 10/07/2016 BILATERAL LOWER EXTREMITY VENOUS DOPPLER: COMPARISON: None available. FINDINGS: There are no discrete filling defect identified in the deep venous systems bilaterally on grayscale imaging. There is normal Doppler flow, compressibility, and augmentation involving the common femoral vein, superficial femoral vein, popliteal vein, posterior tibial vein, and peroneal vein, bilaterally. The great saphenous veins appear to be patent bilaterally. IMPRESSION: No evidence of deep venous thrombosis.
[2016-10-10 07:18] LABS: AGAP 9; BUN 15 mg/dL (8-22); CALCIUM 8.9 mg/dL (8.8-10.2); CHLORIDE 104 mmol/L (98-107); COSMO 278; POTASSIUM 3.9 mmol/L (3.5-5.1); SODIUM 139 mmol/L (136-145); TCO2 27 mmol/L (25-35)
[2016-10-10] MEDS: PRINIVIL PO SCH (08:41)
--- NOTE | 2016-10-10 15:44 | DISCHARGE SUMMARY ---
ADMISSION DATE: 10/07/2016 DISCHARGE DATE: DISCHARGE DIAGNOSES: 1. Atypical pneumonia, likely chronic obstructive pulmonary disease exacerbation. 2. Acute hypoxic respiratory failure. 3. Hypokalemia. ADMISSION DIAGNOSIS: 1. Acute respiratory failure. 2. Bilateral pneumonia. 3. Acute kidney injury. 4. Elevated D-dimer. 5. Hyperglycemia. HOSPITAL COURSE: Briefly, this is a 61-year-old female, no significant medical issues, came in for nausea, vomiting, extremely hypertensive when she came in, 260/117, elevated D-dimer, a significant respiratory acidosis. Urine drug screen positive for cannabinoids. She was placed on BiPAP and did not require intubation. V/Q and Dopplers were pursued. In any case, she was placed on Levaquin, Rocephin, Flagyl. She slowly clinically improved. We weaned down her oxygen to 98 on 3 L. We tried to DC the O2 saturations and she improved somewhat, but she still required home oxygen. Chest x-ray was improved. DISCHARGE MEDICATIONS: DuoNebs q.6, Levaquin 500 daily for 7 days. Nebulizer. Lisinopril 10 daily. FOLLOWUP: She is to follow up with Dr. Rincon in 1 week. We will continue to follow.
[2016-10-10 16:07] VITALS: BP 149/60
--- NOTE | 2016-10-10 21:03 | PROGRESS NOTE ---
DATE: 10/10/2016 SUBJECTIVE: Patient seen and examined this afternoon. No acute events overnight. Shortness of breath has been stable. Continues to require 1-2 L of oxygen. OBJECTIVE: Vital signs: Blood pressure is 149/65, pulse rate is 80, respiratory rate is 24, temperature 99.4 degrees, oxygen saturation is 98% on 3 L. Heart: S1-S2 heard. Lungs: Clear bilaterally. Abdomen: Soft. Extremities: No edema. MANAGER OF MANUFACTURING: No confusion. LABORATORY: Hemoglobin 11, white count is 7.1, hematocrit 35. Electrolytes, sodium 139, potassium 3.9, chloride 104, BUN 9, creatinine 15. ASSESSMENT AND PLAN: 1. Chronic obstructive pulmonary disease exacerbation. 2. Hypoxic respiratory failure. 3. Acute kidney injury. PLAN: Continue DuoNebs, Levaquin 500 for 7 days. The patient needs outpatient evaluation and management of hypoxia and chronic obstructive pulmonary disease.
== END 2016-10-10 19:04 | disposition home health service (06) | DRG 189 ==
LOC: P.ED 13:47 → P.EDIPHOLD 18:14 → P.MEDSURG 20:38
PROVIDERS: ATTEND Internal Medicine
DX: J96.02 Acute respiratory failure with hypercapnia (principal); J18.9 Pneumonia, unspecified organism; N17.9 Acute kidney failure, unspecified; J44.0 Chronic obstructive pulmonary disease with (acute) lower respiratory infection; J44.1 Chronic obstructive pulmonary disease with (acute) exacerbation; J96.01 Acute respiratory failure with hypoxia; F17.210 Nicotine dependence, cigarettes, uncomplicated; R73.9 Hyperglycemia, unspecified; I10 Essential (primary) hypertension; E87.6 Hypokalemia; R82.5 Elevated urine levels of drugs, medicaments and biological substances; R79.1 Abnormal coagulation profile
CPT/HCPCS: 36415; 70450; 71010; 78582; 80048; 80053; 81001; 82550; 82805; 82948; 83036; 83605; 83735; 83880; 84484; 85025; 85027; 85379; 85610; 85730; 87040; 87070; 87088; 87205; 87804; 93005; 93970; 94640; 94761; 94799; A9539; A9540; J0456; J0696; J1650; J1940; J2270; J2405; J7030; J7050; S0030

== ENCOUNTER 2016-12-18 23:12 | Inpatient (IN) ==
[2016-12-18] MEDS ORDERED: DOPAMINE 800 MG/D5W (PARKWAY ONLY!) 250 ML IV SCH (23:45)
[2016-12-18] MEDS ORDERED: DOPAMINE 800 MG/D5W (PARKWAY ONLY!) 250 ML ONE (23:51)
[2016-12-18] MEDS ORDERED: ZOSYN 3.375 GM/NS 50 ML ONE (23:51)
[2016-12-18] MEDS ORDERED: EPINEPHRINE SYRINGE IV ONE ×3 (23:52→23:53)
[2016-12-18] MEDS ORDERED: ZOSYN 3.375 GM/NS 50 ML IV ONE (23:54)
[2016-12-19 00:29] LABS: BLOOD TYPE ARTERIAL; DRAW SITE L RADIAL; METHB 0.6 % (0.0-1.5); O2(CT) 13.7 mL/dL (15.0-23.0); SAMPLE BLOOD; SAO2 91.7 % (95.0-100.0); THB 11.5 g/dL (11.5-17.4)
[2016-12-19 00:31] LABS: BLOOD TYPE ARTERIAL; DRAW SITE L RADIAL; METHB 0.8 % (0.0-1.5); O2(CT) 17.3 mL/dL (15.0-23.0); PCO2(98.6) 45 mmHg (35-45); PO2(98.6) 148 mmHg (60-100); SAMPLE BLOOD; SAO2 99.9 % (95.0-100.0); SRATE 14 BPM; THB 13.2 g/dL (11.5-17.4); TVOL 700 mL
[2016-12-19] MEDS ORDERED: LASIX IV ONE (00:36)
[2016-12-19] MEDS ORDERED: LASIX ONE (00:36)
[2016-12-19 00:48] LABS: BASO% 0.6 % (0.0-0.8); EOS# 0.19 X1000 (0.0-0.7); EOS% 1.3 % (0.0-10.0); HEMATOCRIT 36.9 % (37.0-47.0); HEMOGLOBIN 10.8 g/dL (12.0-16.0); IMM GRAN# 1.16 X1000 (0.0-0.04); IMM GRAN% 8.1 % (0.0-0.5); LYMPH# 8.86 X1000 (1.2-3.4); LYMPH% 62.1 % (20.5-51.1); MANUAL DIFF NEEDED? YES; MCHC 29.3 g/dL (33-37); MONO# 0.73 X1000 (0.11-0.59); MONO% 5.1 % (1.7-9.3); NEUT% 22.8 % (42.2-75.2); PLT 219 X1000 (130-400); RBC 3.48 XMIL (4.2-5.4)
[2016-12-19 00:55] LABS: AGAP 24; ALBUMIN 3.1 g/dL (3.5-5.0); ALKALINE PHOSPHATASE 112 U/L (32-104); BUN 26 mg/dL (8-22); CALCIUM 8.7 mg/dL (8.8-10.2); CHLORIDE 102 mmol/L (98-107); COSMO 304; GOT 394 U/L (10-30); GPT 357 U/L (10-36); POTASSIUM 4.5 mmol/L (3.5-5.1); SODIUM 138 mmol/L (136-145); TCO2 12 mmol/L (25-35); TOTAL BILIRUBIN < 0.15 mg/dL (0.20-1.00); TOTAL PROTEIN 5.7 g/dL (6.3-8.3)
[2016-12-19] MEDS ORDERED: HUMULIN R (PARKWAY) IV ONE (01:02)
--- NOTE | 2016-12-19 01:03 | PROVIDER DOCUMENTATION ---
HPI-Cardiopulmonary Arrest - General Source: EMS - History of Present Illness-C/P Arrest Reason for Code Blue?: full arrest Witnessed arrest?: No Bystander CPR?: No CPR initiated before doctor arrival?: Yes Down-time before ACLS?: unknown Initial Findings: asystole Treatment initiated prior to doctor arrival?: Initiated BVM, Initiated CPR/ thumper, Initiated epinephrine #mg (3 ROUNDS), Initiated sodium bicarb # amps ( 1 ROUND), Initiated other (1 NARCAN) Similar Symptoms Previously?: No Recently seen or treated by another doctor?: No - Pre-hospital Treatment EMS Initial Findings:: unresponsive, no respirations EMS Initial HR: ASYSTOLE Pre-hospital Treatment: Initiated oxygen, Initiated BVM, Initiated CPR, Initiated epinephrine (3 ROUNDS OF EPI), Initiated other (1 NARCAN. 1 BICARB) <Minor Laboy - Last Filed: 12/19/16 01:39> <Mandeep Mullen - Last Filed: 12/19/16 01:51> - General Chief Complaint: Full Arrest Stated Complaint: cardiac arrest Time Seen by Provider: 12/18/16 23:12 Allergies/Adverse Reactions: Allergies Allergy/AdvReac Type Severity Reaction Status Date / Time azithromycin [From Zithromax] Allergy NAUSEA/VOMI Verified 10/07/16 21:59 TING Home Medications: Home Medication List Medication Instructions Recorded Confirmed Last Taken Type Albuterol 2.5MG/Ipratrop 0.5MG 3 ml INH RTQ6H #120 neb 10/10/16 Unknown Rx [Duoneb] LISINOpril [Prinivil] 10 mg PO DAILY #30 tablet 10/10/16 Unknown Rx Levofloxacin [Levaquin] 500 mg PO DAILY #7 tablet 10/10/16 Unknown Rx Nebulizer [Aeroneb Go Nebuliser] 1 each MC 4XDAY #1 each 10/10/16 Unknown Rx - History of Present Illness-C/P Arrest Initial Comments: Jasmyne BRITO PRESENTS TO ED VIA AMBULANCE, WITH C/O EMS STATES CALL CAME IN AT 22: 35. EMS STATES CPR BEGAN AT 22:43. PT ARRIVED AT ED AT 23:12. PT DID HAVE A PULSE UPON ARRIVING AT ED. (Minor Laboy) Review of Systems - Adult - REVIEW OF SYSTEMS - ADULT ROS:: limited per condition All Other Systems: Reviewed and Negative <Minor Laboy - Last Filed: 12/19/16 01:39> - REVIEW OF SYSTEMS - ADULT ROS:: ROS per family Constitutional: reports: no symptoms reported Eyes: reports: no symptoms reported Ears, Nose, Mouth & Throat: reports: no symptoms reported Cardiovascular: reports: no symptoms reported Respiratory: reports: no symptoms reported Gastrointestinal: reports: no symptoms reported Genitourinary: reports: no symptoms reported Musculoskeletal: reports: no symptoms reported Integumentary: reports: no symptoms reported Neurological: reports: no symptoms reported Psychiatric: reports: no symptoms reported Endocrine: reports: no symptoms reported Hematologic/Lymphatic: reports: no symptoms reported Allergic/Immunologic: reports: no symptoms reported All Other Systems: Reviewed and Negative <Mandeep Mullen - Last Filed: 12/19/16 01:51> Past History - Adult - PAST MEDICAL HISTORY-ADULT Review of Records: reports: Old Records Reviewed, Nursing Assessment Review, Medications Reviewed, Social history reviewed & non-contributory. Major Childhood Illnesses: reports: denies history Cardiovascular: reports: denies history Respiratory: reports: denies history Gastrointestinal: reports: denies history Obstetrical/Gynecological: reports: denies history Genitourinary: reports: denies history Musculoskeletal: reports: denies history Neurological: reports: denies history Endocrine/Immune: reports: denies history Other Conditions: reports: denies history - PRIOR SURGERIES/PROCEDURES Surgical/Procedure History: reports: reviewed, not pertinent - IMMUNIZATION STATUS Childhood Immunizations: See Nurse Assessment Flu Vaccine: See Nurse Assessment - FAMILY HISTORY Family History: reviewed, not pertinent <Minor Laboy - Last Filed: 12/19/16 01:39> - PRIOR SURGERIES/PROCEDURES Surgical/Procedure History: reports: reviewed, not pertinent - PRIOR HOSPITALIZATIONS Prior Hospitalizations: reports: for other non-related - SOCIAL HISTORY Living Situation: alone <Manedep Mullen - Last Filed: 12/19/16 01:51> Physical Exam-General - PHYSICAL EXAM-ADULT Exam Limited by: PT CONDITION <Minor Laboy - Last Filed: 12/19/16 01:39> - PHYSICAL EXAM-ADULT Initial Vital Signs Reviewed: Yes - CONSTITUTIONAL General Appearance: obtunded - EYES Eyes: other (FIXED AND DILATED) - HEAD, EARS, NOSE, MOUTH & THROAT HENMT: pharynx normal (SWOLLEN WITH LARGE AMT VOMITUS) - NECK Neck: limited range of motion - RESPIRATORY Respiratory: rales (RALES BILATERALLY) - CARDIOVASCULAR Cardiovascular: other (ASYSTOLIC RETURN TO PERFUSING RHYTHM POST RESUSCITATION) - CHEST (BREASTS) Chest/Breast: deferred - GASTROINTESTINAL (ABDOMEN) Abdominal Exam: distended - GENITOURINARY Rectal Exam: deferred - LYMPHATIC Lymphatic: no adenopathy - MUSCULOSKELETAL Extremity: normal range of motion. negative: pedal edema Peripheral Pulses: radial (R): 4+ (VARIED WITH BP) - SKIN Integumentary: pallor - NEUROLOGIC Neurologic: abnormal curtain drier II-XII - PSYCHIATRIC Psych/Mental Status: other (COMATOSE) <Mandeep Mullen - Last Filed: 12/19/16 01:51> Progress - XRAY 1 XRAY: Bilateral XRAY Study: Chest XRAY Interpretation: RT ASPIRATION PNEUMONIA. - CONSULTS/PCP/HOSPITALIST Notification #1 *Consult/PCP/Hospitalist*: DR ANDREWS Time Discussed: 01:32 Reason/Comments: DR MULLEN SPOKE WITH DR ANDREWS AT [facility]. DR ANDREWS WILL ADMIT TO MAIN Consult Disposition: Admit <Minor Laboy - Last Filed: 12/19/16 01:39> <Mandeep Mullen - Last Filed: 12/19/16 01:51> - PLAN OF CARE/RESULTS Progress/Plan/Lab Results: 23:12 PT ARRIVES AT ED VIA AMBULANCE PT HAD A PULSE OF 94 ON THE MONITOR WITH BVM AND BEL AIRWAY. 23:15 1ST INTUBATION ATTEMPT. PT PRESENTS WITH COPIOUS AMOUNTS OF VOMIT. 23:18 PT IS ASYTOLE ON THE MONITOR AND HARSHA IS STARTED. 23:20 2ND INTUBATION ATTEMPT. RESUME HARSHA. BVM WITH ORAL AIRWAY. 23:[address] INTUBATION ATTEMPT 8.0 24 AT LIPS GOOD BREATH SOUNDS BILATERAL. 23:33 PT HAS PULSE 108 ON THE MONITOR. 23:47 B/P 139/88 23:50 PT PLACED ON VENT. Laboratory Tests 12/18/16 12/18/16 12/18/16 23:29 23:35 23:35 WBC RBC Hgb Hct MCV MCH MCHC RDW Std Deviation Plt Count MPV Immature Gran % (Auto) Neut % (Auto) Lymph % (Auto) [place] % (Auto) Eos % (Auto) Baso % (Auto) Immature Gran # (Auto) Neut # (Auto) Lymph # (Auto) [place] # (Auto) Eos # (Auto) Baso # (Auto) Segmented Neutrophils Band Neutrophils Lymphocytes Monocytes Eosinophils Metamyelocytes Atypical Lymphocytes Hypochromia Macrocytosis Specimen Type ARTERIAL Sample Site L RADIAL pH < 6.80 L* pCO2 81 H* pO2 87 Oxyhemoglobin 84.2 L* ABG O2 Sat (Calculated) 13.7 L ABG O2 Saturation 91.7 L ABG Carboxyhemoglobin 7.60 H* ABG Methemoglobin 0.6 Lit Test YES A-a O2 Difference 525.0 Total Hemoglobin 11.5 Lactate 15.80 H* Liter Flow 15.0 Blood Gas Modality AMBU BAG Vent Mode Spontaneous Rate FiO2 % 100.0 Tidal Volume PEEP Pressure Support Sodium 138 Potassium 4.5 Chloride 102 Carbon Dioxide 12 L Anion Gap 24 BUN 26 H Creatinine 1.2 H Estimated GFR/1.73 m2 46 BUN/Creatinine Ratio 22 Glucose 515 H* Calculated Osmolality 304 Calcium 8.7 L Total Bilirubin < 0.15 L AST 394 H ALT 357 H Alkaline Phosphatase 112 H Troponin T < 0.010 Total Protein 5.7 L Albumin 3.1 L Globulin 3.0 Albumin/Globulin Ratio 1.0 12/18/16 12/19/16 23:35 00:14 WBC 14.27 H RBC 3.48 L Hgb 10.8 L Hct 36.9 L MCV 106.0 H MCH 31.0 MCHC 29.3 L RDW Std Deviation 12.7 Plt Count 219 MPV 11.0 H Immature Gran % (Auto) 8.1 H Neut % (Auto) 22.8 L Lymph % (Auto) 62.1 H [place] % (Auto) 5.1 Eos % (Auto) 1.3 Baso % (Auto) 0.6 Immature Gran # (Auto) 1.16 H Neut # (Auto) 3.25 Lymph # (Auto) 8.86 H [place] # (Auto) 0.73 H Eos # (Auto) 0.19 Baso # (Auto) 0.08 Segmented Neutrophils 23 L Band Neutrophils 5 H Lymphocytes 62 H Monocytes 4 Eosinophils 2 Metamyelocytes 1.0 Atypical Lymphocytes 3.0 Hypochromia 1+ Macrocytosis 2+ Specimen Type ARTERIAL Sample Site L RADIAL pH < 6.80 L* pCO2 45 pO2 148 H Oxyhemoglobin 91.9 L ABG O2 Sat (Calculated) 17.3 ABG O2 Saturation 99.9 ABG Carboxyhemoglobin 7.20 H* ABG Methemoglobin 0.8 Lit Test YES A-a O2 Difference 509.0 Total Hemoglobin 13.2 Lactate 15.30 H* Liter Flow Blood Gas Modality VENTILATOR Vent Mode SIMV Spontaneous Rate 14 FiO2 % 100.0 Tidal Volume 700 PEEP 5.0 Pressure Support 10.00 Sodium Potassium Chloride Carbon Dioxide Anion Gap BUN Creatinine Estimated GFR/1.73 m2 BUN/Creatinine Ratio Glucose Calculated Osmolality Calcium Total Bilirubin AST ALT Alkaline Phosphatase Troponin T Total Protein Albumin Globulin Albumin/Globulin Ratio Orders Category Date Time Status [place] Cath Insertion ORDERED Care 12/18/16 23:52 Active NG/OG/Feeding Tube Insertion ORDERED Care 12/18/16 23:56 Active CHEST-PORTABLE [RAD] Stat Exams 12/19/16 23:55 Taken ABG [RESP] Routine Lab 12/18/16 23:29 Completed ABG [RESP] Routine Lab 12/19/16 00:14 Completed BLOOD CULTURE [BLDCUL] Stat Lab 12/19/16 00:19 Ordered CBC WITH DIFF [HEME] Stat Lab 12/19/16 00:19 Completed COMPREHENSIVE METABOLIC PANEL [CHEM] Stat Lab 12/19/16 00:19 Completed TROPONIN T Stat Lab 12/19/16 00:19 Completed Dopamine 800 mg/D5w ([place]) [Dopamine 800 mg/D5w ( Med 12/18/16 23:51 Discontinued [place] Only!)] 250 ml .ROUTE As Directed Dopamine 800 mg/D5w ([place]) [Dopamine 800 mg/D5w ( Med 12/18/16 23:45 Active [place] Only!)] 250 ml IV As Directed Epinephrine Syringe Med 12/18/16 23:52 Discontinued 1 mg IV NOW ONE Epinephrine Syringe Med 12/18/16 23:53 Discontinued 1 mg IV NOW ONE Epinephrine Syringe Med 12/18/16 23:53 Discontinued 1 mg IV NOW ONE Furosemide [Lasix] Med 12/19/16 00:36 Discontinued 40 mg .ROUTE .STK-MED ONE Furosemide [Lasix] Med 12/19/16 00:36 Discontinued 40 mg IV NOW ONE Insulin Human Reg Dose ([address] [Humulin R Dose ([place] Med 12/19/16 01:04 Discontinued )] 1 dose .ROUTE .STK-MED ONE Insulin Human Regular ([place] [Humulin R ([place])] Med 12/19/16 01:02 Discontinued 4 units IV NOW ONE Piperacil/Tazobact 3.375 gm/Ns [Zosyn 3.375 gm/Ns] 50 Med 12/18/16 23:51 Discontinued ml .ROUTE As Directed Piperacil/Tazobact 3.375 gm/Ns [Zosyn 3.375 gm/Ns] 50 Med 12/18/16 23:54 Discontinued ml IV NOW Ventilator Order Stat Oth 12/18/16 23:55 Active Ventilator Order Stat Oth 12/19/16 00:08 Active Vital Signs - 24 hr 12/19/16 12/19/16 12/19/16 00:16 00:48 01:25 Temperature 94.3 F L Pulse Rate 71 124 H 132 H Respiratory 14 18 14 Rate Blood Pressure 138/70 127/93 O2 Sat by Pulse 98 99 97 Oximetry 12/19/16 01:34 Temperature 95.0 F L Pulse Rate 124 H Respiratory 14 Rate Blood Pressure 126/83 O2 Sat by Pulse 99 Oximetry (Minor Laboy) Departure <Minor Laboy - Last Filed: 12/19/16 01:39> - Departure Time of Disposition Order: 01:30 Certified Medical Emergency: Emergent <Mandeep Mullen - Last Filed: 12/19/16 01:51> - Departure DIAGNOSIS: Full code status, Cardiac arrest due to respiratory disorder Aspiration pneumonia Qualifiers: Aspiration pneumonia type: due to regurgitated food Laterality: right Lung location: middle lobe of lung Qualified Code(s): J69.0 - Pneumonitis due to inhalation of food and vomit Disposition: ADMITTED INPATIENT 09 Condition: Critical Referrals: None,PCP [Primary Care Provider] - Attestation - Scribe Verification/Attestation Scribe:: Minor Laboy Acting as Scribe for:: Mandeep Mullen Scribe documention review:: This chart was documented by a scribe and accurately reflects the service the provider performed and the decisions made by the provider. <Minor Laboy - Last Filed: 12/19/16 01:39> Physician Attestation
[2016-12-19] MEDS ORDERED: HUMULIN R DOSE (PARKWAY) ONE (01:04)
[2016-12-19 01:18] LABS: PO2(98.6) 87 mmHg (60-100)
[2016-12-19 01:19] LABS: ALLEN TEST YES; MODALITY AMBU BAG
[2016-12-19 01:20] LABS: ALLEN TEST YES; MODALITY VENTILATOR; pH(98.6) < 6.80 (7.35-7.45)
[2016-12-19] MEDS ORDERED: ZOFRAN IV PRN (01:31)
[2016-12-19] MEDS ORDERED: ZOFRAN IV ONE (01:31)
[2016-12-19 01:34] LABS: BANDS 5 % (0-1); EOS 2 % (1-10); LYMPHS 62 % (21-51); MONO 4 % (1-9)
[2016-12-19 01:36] LABS: HYPOCHROM 1+
[2016-12-19] MEDS ORDERED: NS 2,000 ML ONE (01:39)
[2016-12-19] MEDS ORDERED: NS 1,000 ML IV SCH ×2 (01:45→03:30)
[2016-12-19] MEDS ORDERED: EPINEPHRINE SYRINGE ONE ×2 (03:00→17:54)
[2016-12-19] MEDS ORDERED: SODIUM BICARBONATE 8.4% ONE ×2 (03:00→17:54)
[2016-12-19] MEDS ORDERED: TYLENOL PR PRN (03:42)
[2016-12-19 03:44] LABS: ALLEN TEST YES; BE -8.4 mmoll (-3.0-3.0); BLOOD TYPE ARTERIAL; DRAW SITE R RADIAL; METHB 1.5 % (0.0-1.5); O2(CT) 17.6 mL/dL (15.0-23.0); PO2(98.6) 51 mmHg (60-100); SAMPLE BLOOD; SAO2 87.2 % (95.0-100.0); SRATE 14 BPM; THB 15.4 g/dL (11.5-17.4); TVOL 500 mL
[2016-12-19 03:45] LABS: MODALITY VENTILATOR; PCO2(98.6) 74 mmHg (35-45)
[2016-12-19] MEDS ORDERED: SODIUM PHOSPHATE 10 MMOL in NS 250 ML IV PRN (03:45)
[2016-12-19] MEDS ORDERED: MAGNESIUM SULFATE 2 GM in STERILE WATER INJ. 50 ML IV PRN (03:45)
[2016-12-19] MEDS ORDERED: POTASSIUM CHLORIDE 40 MEQ in NS 250 ML IV PRN (03:45)
[2016-12-19] MEDS: NS 1,000 ML IV SCH ×3 (03:45→07:05)
[2016-12-19] MEDS ORDERED: FENTANYL IV ONE (03:45)
[2016-12-19] MEDS ORDERED: POTASSIUM CHLORIDE 60 MEQ in NS 500 ML IV PRN (03:45)
[2016-12-19] MEDS ORDERED: LEVOPHED 8 MG in D5 1/2 NS 250 ML IV SCH (04:00)
[2016-12-19] MEDS ORDERED: NITROGLYCERIN 50 MG/D5W 250 ML IV SCH (04:00)
[2016-12-19 04:06] LABS: BASO% 0.3 % (0.0-0.8); EOS# 0.06 X1000 (0.0-0.7); EOS% 0.3 % (0.0-10.0); HEMATOCRIT 46.7 % (37.0-47.0); IMM GRAN# 1.08 X1000 (0.0-0.04); IMM GRAN% 4.7 % (0.0-0.5); LYMPH% 9.2 % (20.5-51.1); MANUAL DIFF NEEDED? YES; MCH 31.9 PG (27-31); MCHC 32.1 g/dL (33-37); MCV 99.4 FL (81-99); MONO# 0.54 X1000 (0.11-0.59); MONO% 2.4 % (1.7-9.3); MPV 9.8 FL (7.4-10.4); NEUT% 83.1 % (42.2-75.2); PLT 297 X1000 (130-400)
[2016-12-19 04:07] LABS: LYMPHS 16 % (21-51); MONO 6 % (1-9)
[2016-12-19 04:09] LABS: ALBUMIN 3.4 g/dL (3.5-5.0); MAGNESIUM 2.2 mg/dL (1.5-2.7); POTASSIUM 4.2 mmol/L (3.5-5.1); TOTAL BILIRUBIN 0.36 mg/dL (0.20-1.00); TOTAL PROTEIN 6.9 g/dL (6.3-8.3)
[2016-12-19] MEDS: ATIVAN IV SCH ×6 (04:28→23:15)
[2016-12-19] MEDS: FENTANYL 1,000 MICROGM in NS 80 ML IV SCH ×3 (04:50→23:13)
[2016-12-19] MEDS: LACRI-LUBE OPH OINT BOTH EYES SCH ×4 (04:54→21:37)
[2016-12-19] MEDS ORDERED: DOBUTAMINE IV SCH (05:00)
[2016-12-19] MEDS ORDERED: [UNRECOGNIZED DRUG - OTHER] IV SCH (05:00)
[2016-12-19] MEDS: NIMBEX 80 MG in NS 160 ML IV SCH ×2 (05:01→22:07)
[2016-12-19 05:17] LABS: URINE MICRO REVIEW NEEDED? NO; URINE SOURCE CATH
[2016-12-19 05:20] LABS: BILIRUBIN URINE NEGATIVE (NEGATIVE); BLOOD URINE MODERATE (NEGATIVE); COLOR YELLOW; GLUCOSE URINE 1000 mg/dL (NEGATIVE); LEUKOCYTES URINE NEGATIVE (NEGATIVE); NITRITE URINE NEGATIVE (NEGATIVE); PROTEIN URINE 100 mg/dL (NEGATIVE); SP GRAVITY URINE 1.006; TURBIDITY URINE CLEAR (CLEAR); UROBILINOGEN URINE NORMAL (NORMAL)
[2016-12-19 05:21] LABS: UR EPITHELIAL CELLS <10 /HPF (<10); URINE BACTERIA NEGATIVE /HPF; URINE CULTURE NEEDED? YES; URINE RBC <10 /HPF (<10)
--- NOTE | 2016-12-19 05:38 | EKG Report ---
Test Performed on : 12/19/2016 03:59:20 AM Test Reason : post cardiac arrest Blood Pressure : / mmHG Vent. Rate : 070 BPM Atrial Rate : 070 BPM P-R Int : 136 ms QRS Dur : 092 ms QT Int : 488 ms P-R-T Axes : 069 043 068 degrees QTc Int : 527 ms Normal sinus rhythm. Nonspecific ST and T wave abnormality Prolonged QT Abnormal ECG When compared with ECG of 07-OCT-2016 14:32, Vent. rate has decreased BY [address] no longer depressed in Anterior leads T wave inversion no longer evident in Inferior leads Confirmed by Qian CHICAS, Lit [place] ([id number]) on 12/20/2016 1:36:21 PM
[2016-12-19] MEDS: SODIUM BICARBONATE 8.4% 100 MEQ in STERILE WATER INJ. 1,000 ML IV SCH ×2 (05:47→15:50)
--- NOTE | 2016-12-19 05:48 | HISTORY AND PHYSICAL ---
CHIEF COMPLAINT: Cardiac arrest, respiratory failure. HISTORY OF PRESENTING ILLNESS: A 61-year-old female who apparently was found home unconscious. When EMS arrived, she was in respiratory failure. An LMA was placed and the patient was transferred to [place] emergency department where she was intubated. She went into cardiac arrest and asystole. Subsequently, ACLS protocol was followed. However, she still remained acidotic and due to lack of subspecialty pulmonary care there, the patient was transported to [facility] for further evaluation and treatment. At the time of my examination, patient was intubated and on a ventilator. She was hypothermic. Subsequently, hypothermia protocol was started. Her condition is fairly critical. No family is around to obtain any information. Most of the history is obtained from her previous records. PAST MEDICAL HISTORY: None. PAST SURGICAL HISTORY: Neck surgery. ALLERGIES: No known drug allergies. CURRENT MEDICATIONS: As listed in the MAR. SOCIAL HISTORY: A 40 pack year history of smoking. No history of alcohol or illicit drug use. FAMILY HISTORY: No history of coronary artery disease. REVIEW OF SYSTEMS: Unable to obtain. PHYSICAL EXAMINATION: GENERAL: Patient is intubated and on a ventilator currently. VITAL SIGNS: Temperature 94.3, pulse 125, blood pressure 127/93. HEENT: Atraumatic, normocephalic. NECK: No masses. CHEST: Rhonchi. CARDIOVASCULAR: Tachycardic. ABDOMEN: Soft. Positive bowel sounds. EXTREMITIES: No edema. NEUROLOGIC: She is unresponsive. : No bladder distention. SKIN: Cold. LABORATORIES AND STUDIES: Sodium 138, potassium 4.5, chloride 102, CO2 is 12, BUN is 26, creatinine is 1.2, glucose is 515. WBCs 14.27, hemoglobin 10.8, hematocrit 36.9, platelets 219,000. ASSESSMENT: A 61-year-old, unfortunate female who was found in respiratory failure and was apparently down for over 20 minutes prior to emergency medical service arriving. A laryngeal mask airway was placed and the patient was brought to the [place] emergency department where she was intubated. She remained hypotensive and acidotic. Due to lack of subspecialty care, she was transferred to [facility] for further evaluation and management. 1. Acute respiratory failure. 2. Cardiac arrest. 3. Suspected aspiration pneumonia. 4. Hyperglycemia. 5. Acidosis. 6. Abnormal liver function tests. PLAN: 1. We will admit the patient in ICU. 2. We will continue with ventilator support. 3. We will consult pulmonology. 4. We will continue patient on bicarb drip. 5. We will check blood cultures. Start patient on IV antibiotics. 6. Put patient on sliding scale insulin regimen. 7. We will continue to initiate hypothermia protocol. 8. Check an abdominal ultrasound. 9. We will put patient on DVT prophylaxis with heparin. 10. Patient's condition is critical.
[2016-12-19] MEDS: PEPCID IV SCH ×2 (05:58→17:49)
[2016-12-19] MEDS: ZOSYN 3.375 GM/NS 50 ML IV SCH ×4 (05:59→22:03)
--- NOTE | 2016-12-19 06:58 | Diag Imaging Result Document ---
PROCEDURE NAME: CHEST-PORTABLE - 12/19/2016 PORTABLE CHEST: COMPARISON: Compared to 12/18/2016. FINDINGS: There are diffuse and dense bilateral infiltrates. Considering the differences in technique, I do not believe there has been a significant change compared to the prior study. A nasogastric tube overlies the esophagus and stomach. There is also an endotracheal tube with the tip 1 cm above the luis. No effusions identified. IMPRESSION: Stable chest.
--- NOTE | 2016-12-19 07:01 | HISTORY AND PHYSICAL ---
CHIEF COMPLAINT: Cardiac arrest and respiratory failure. HISTORY OF PRESENT ILLNESS: A 61-year-old female apparently was found at home unconscious and not breathing. Subsequently EMS was called and when she arrived she was in respiratory failure. EMS had put down an LMA for airway and then was brought to [facility] where the patient was intubated. The patient was still in cardiac arrest and ACLS protocol was followed. However, the patient still was acidotic and INCOMPLETE REPORT-DICTATION STOPS HERE
--- NOTE | 2016-12-19 07:10 | Diag Imaging Result Document ---
PROCEDURE NAME: CHEST-PORTABLE - 12/19/2016 PORTABLE CHEST: COMPARISON: Compared to 10/09/2016 FINDINGS: There is an endotracheal tube with the tip at the luis, but it is angled slightly toward the right. A nasogastric tube overlies the esophagus. The tip is near the GE junction. There are diffuse bilateral infiltrates. No pleural effusions identified. IMPRESSION: 1. Diffuse bilateral infiltrates. 2. Endotracheal tube is at the luis, but slightly angled toward the right. It should probable be pulled back 2 cm. Nasogastric tube has its tip near the GE junction and should probable be advanced.
[2016-12-19 07:31] LABS: INR 1.28; PROTIME 13.6 Seconds (9.2-11.7)
[2016-12-19] MEDS: HUMULIN R SUBQ SCH ×4 (07:38→21:37)
[2016-12-19] MEDS ORDERED: NS 250 ML ONE (07:40)
[2016-12-19] MEDS: DUONEB (A & A) INH PRN ×5 (08:15→22:52)
[2016-12-19] MEDS ORDERED: NS 500 ML ONE (08:37)
[2016-12-19] MEDS: NS 500 ML IV PRN ×2 (08:50→10:20)
[2016-12-19] MEDS ORDERED: HEPARIN SUBQ SCH (09:00)
[2016-12-19] MEDS ORDERED: VANCOMYCIN 1 GM/NS 250 ML IV ONE (09:08)
[2016-12-19] MEDS ORDERED: VANCOMYCIN IV PER PHARMACY MISC SCH (09:15)
--- NOTE | 2016-12-19 09:43 | CONSULTATION ---
DATE OF CONSULTATION: 12/19/2016 INDICATION: Status post cardiac arrest. HISTORY OF PRESENT ILLNESS: Ms. Barksdale is a 61-year-old black female, with a history of apparent hypertension based on review of home medications. She presented to [facility] apparently in PEA. She came in to the emergency room after being found unconscious at home. EMS arrived, placed an LMA and transferred to [place] where she was intubated. She apparently there had an asystole arrest with resuscitation via ACLS protocol. She was transported to [place] secondary to no institution director on staff there. Here, she was noted to have 2 subsequent cardiac arrest, both apparently for PEA. The first one occurring at 4:02 and the second one at 5:22. The first one seems like it was resuscitated after 1 dose of epinephrine and brief chest compressions. The 2nd episode lasted for around 6 minutes. The patient received 3 doses of epinephrine and chest compressions with recovery. Since that time, the patient has been on hypothermia protocol, sedated, paralyzed, and intubated. She has been on pressors during that time period as well. There is no history available prior to that. PAST MEDICAL HISTORY: Via chart review, seems to be suggestive of hypertension based on a home medication of lisinopril. In addition, she is on some sort of nebulizers so presumably has chronic obstructive pulmonary disease based on her smoking history. SOCIAL HISTORY: She smokes a pack a day. I am unable to obtain any other social history secondary to intubated status. FAMILY HISTORY: Also unable to be obtained secondary to intubated status. REVIEW OF SYSTEMS: Also unable to be obtained secondary to intubated status. PHYSICAL EXAMINATION: Vital Signs: Currently she is on the hypothermia protocol. She has not been febrile since presentation. Her heart rate at time of my examination was in the 90s, systolic blood pressure was in the 140 on 2 pressors in the form of dopamine and Levophed. General Appearance: Generally, she is sedated and paralyzed on the ventilator. HEENT: Oropharynx is somewhat dry. Poor dentition. Eye examination: Shows pink conjunctivae, white sclerae. Neck Examination: Shows no obvious thyromegaly or thyroid tenderness. Cardiovascular: She sounds to be in a regular rate and rhythm. She has no obvious murmurs present. She has no lower extremity edema. She has mildly cool upper and lower extremities secondary to the hypothermia protocol. Current telemetry shows sinus rhythm. Chest Examination: Has coarse bilateral breath sounds. Noted to have mechanical breath sounds heard throughout all lung monreal. Abdomen: Soft, nontender, nondistended. She has no obvious organomegaly. Skin Examination: Warm and dry throughout without any rashes. Neurologic Examination: Unable to be performed secondary to sedation and paralysis. Psychiatric examination: As well, unable to be performed secondary to his sedation and paralysis. Chest x-ray showed diffuse dense bilateral infiltrates. Her electrocardiogram on presentation shows sinus rhythm. She had a rate of 70 beats per minute. She has nonspecific, very scant mild ST depressions somewhat diffusely. Her laboratory data shows a white count of 22. She had a left shift with a bandemia on presentation. She has a left shift presently but on presentation she actually had 23% neutrophils and 62% lymphocytes. Her hematocrit is 46.7, platelet count 297,000. Her INR is 1.28. Her ABG on presentation was less than 6.8, presently at 7.1, with a pCO2 of 74, pO2 of 51. That gives her an AA gradient of 570. Her lactate is 2.9. On presentation it was 15.8. Sodium is 144, potassium is 4.2. BUN is 32, creatinine 1.7. Sodium is 144, potassium 4.2. Her BUN is 32, creatinine is 1.7. Her anion gap is 14. Her glucose on presentation was 515. Troponin has trended up to 0.38. AST is 532, ALT is 476, alkaline phosphatase 171. Those of all trended up. CKs 545, proBNP is 455. Her urinalysis showed a markedly elevated glucose, a moderate blood, 10- 20 WBCs. ASSESSMENT: 1. Status post PEA arrest. 2. Respiratory failure. 3. Elevated troponin. 4. Evidence for shocked liver. 5. Likely sepsis, presumable source is pulmonary, but also apparently has some white cells noted in the urine. 6. Likely chronic obstructive pulmonary disease. PLAN: I would continue with supportive care, including antibiotics. I will initiate aspirin via NG tube. Echo is currently pending. She is currently being resuscitated on the hypothermia protocol. Echocardiogram was recently checked this morning. I do not believe this is an ACS presentation. I believe more likely the patient is septic. In addition, with a profound chronic obstructive pulmonary disease exacerbation. I would continue resuscitating as such.
[2016-12-19] MEDS ORDERED: VANCOMYCIN 1 GM/NS 250 ML IV SCH (10:00)
[2016-12-19] MEDS: ASPIRIN NG SCH (10:05)
[2016-12-19 10:39] LABS: BE -4.3 mmoll (-3.0-3.0); BLOOD TYPE ARTERIAL; PCO2(98.6) 49 mmHg (35-45); PO2(98.6) 72 mmHg (60-100); SAMPLE BLOOD; SAO2 97.8 % (95.0-100.0); pH(98.6) 7.28 (7.35-7.45)
[2016-12-19 10:40] LABS: ALLEN TEST YES; DRAW SITE R RADIAL; METHB 1.6 % (0.0-1.5); MODALITY VENTILATOR; O2(CT) 21.2 mL/dL (15.0-23.0); THB 16.2 g/dL (11.5-17.4); TVOL 430 mL
--- NOTE | 2016-12-19 11:13 | CONSULTATION ---
DATE OF CONSULTATION: 12/19/2016 REFERRING PHYSICIAN: Dr. Triplett. CHIEF COMPLAINT: Cardiac arrest. HISTORY OF PRESENT ILLNESS: This is a 61-year-old female with unknown past medical history who was found unresponsive and taken to [facility] emergency room where she was intubated. She was then transferred to [facility] and admitted to the ICU for cardiac arrest and respiratory failure. She is hypothermic, hypotensive. Remains unresponsive. ACLS was performed. REVIEW OF SYSTEMS: Unable to obtain. PAST MEDICAL HISTORY: Unknown. PAST SURGICAL HISTORY: Neck surgery. ALLERGIES: No known drug allergies. SOCIAL HISTORY: The patient is a current smoker but no documented history of alcohol or illicit drug use. FAMILY HISTORY: Unknown. PHYSICAL EXAMINATION: Vital Signs: Temperature 91.4 degrees, heart rate 107, respiratory rate 20, blood pressure 89/77, oxygen saturation 92%. General: Unresponsive, intubated. HEENT: Atraumatic and normocephalic. ET tube in place. Cardiovascular: Tachycardic rate. S1-S2 present. Chest: Reduced entry. Abdomen: Bowel sounds present. Extremities: No edema noted. Neurologic: Unresponsive. LABS AND INVESTIGATIONS: WBC 22.92, RBCs 4.7, hemoglobin 15, hematocrit 46.7, platelet count 297,000. Sodium 144, potassium 4.2, chloride 109, CO2 21, anion gap 14, BUN 32, creatinine 1.7, glucose 212. Blood gas reveals a pH of 7.1, pCO2 of 74, PO2 of 51, HC03 of 17.9, base excess - 8.4, saturated oxygen of 87. Urine, blood, and sputum cultures pending. Chest x-ray performed on 12/19/2016 shows diffuse bilateral infiltrates. ASSESSMENT AND PLAN: This is a 61-year-old female with unknown medical history that presented to the hospital after going into cardiac arrest. She was intubated at [facility] in transferred to [facility]. Continue ventilator management for her acute respiratory failure, antibiotics for aspiration pneumonia, bicarbonate drip. Mayers-cultures pending. Sliding scale insulin with patterned fingersticks. Hypothermic protocol. Inhaled bronchodilators and deep venous thrombosis prophylaxis. Further recommendations pending diagnostic studies. Thanks for the courtesy of this consult. Dictated by MALENA Wood for Lurdes Prado MD
[2016-12-19 12:28] LABS: AGAP 13; BUN 28 mg/dL (8-22); CHLORIDE 108 mmol/L (98-107); COSMO 295; SODIUM 144 mmol/L (136-145); TCO2 23 mmol/L (25-35)
[2016-12-19 12:39] LABS: POTASSIUM 2.5 mmol/L (3.5-5.1)
--- NOTE | 2016-12-19 13:12 | PROGRESS NOTE ---
DATE: 12/19/2016 SUBJECTIVE: This morning Ms. Barksdale continues to be intubated, paralyzed, and going through the hypothermia protocol. I called the son who apparently found his mom. According to him, his mom calls him at about 10 last night because she was not feeling well. He did not ask her what the symptoms were, he just went straight down. It took him about 10-15 minutes for him to reach where his mother was. Upon arrival he saw that his mother was unresponsive and on the floor. He called out. About 6 people went to help and then he called the ambulance. The ambulance took also about 10 minutes to reach. During all this time the patient was unresponsive. Patient was sent to [place]. My understanding is that she was found to be in cardiac arrest with initial rhythm of PEA. The patient was intubated in [place] and was transferred over here. OBJECTIVE: Vital signs: Blood pressure is 125/94, pulse of 110, respirations 20, temperature is 90.3 degrees. General: Ms. Barksdale is a 61-year-old female. She is in bed, synchronizing well with the ventilator, completely paralyzed. HEENT: Mucosa is pink and moist. Anicteric. Acyanotic. Neck: Supple. Chest: Air entry is bilaterally reduced. There are diffuse bilateral crepitations with some transmitted sounds from the ventilator. Cardiovascular: Regular rate and rhythm. Abdomen: Soft. No hepatosplenomegaly. Bowel sounds are present. Extremities: No pedal edema. COACH TOUR DRIVER: Patient is paralyzed, is nonresponsive, and going through the hypothermia protocol. LABORATORY DATA: WBC is 22.92, hemoglobin is 15.0, platelet count of 295,000. Chemistry: Sodium is 144, potassium 4.2, chloride is 109, bicarb is 21, creatinine is 1.7. Chest x-ray this morning shows diffuse bilateral infiltrates. CURRENT MEDICATIONS: 1. Aspirin. 2. . 3. Dobutamine. 4. Dopamine. 5. Famotidine. 6. Heparin 50 units subcutaneously q.12. 7. Vancomycin. 8. Zosyn 3.375. 9. Sodium bicarb. ASSESSMENT: 1. Status post cardiac arrest. The patient was found to have PEA on presentation to [facility] and my understanding is that she also had 2 more arrests here in [facility], both of them PEA. 2. Hypothermia protocol. We will continue with this for 24 hours and then we will start to rewarm the patient. 3. Diffuse bilateral lung infiltrates (ARDS) likely from aspiration pneumonia. According to the son the patient had some vomitus at home when he arrived. He saw the mother have some vomit material around where she was lying down. Patient is on antibiotics and we plan to continue with the same. 4. Severe lactic acidosis. This is improving. 5. Hyperglycemia on presentation. Unsure if the patient was in DKA as well since bicarb was ridiculously low and glucose was high. Acetone was, however, not checked on presentation. In any case, this seems to have been improved. 6. Transaminitis. Likely due to ischemic hepatopathy. 7. Elevated troponins. Likely due to subendocardial injury from the arrest. 8. Acute kidney injury. Likely due to ischemic renal injury from the arrest. GENERAL PLAN: Patient is currently intubated and going through the hypothermia protocol. We are going to follow up on that. We will continue with the current antibiotics and we will update the family members for any changes. The patient is being seen by pulmonary medicine and also cardiology will consult and neurology as well for follow up.
[2016-12-19] MEDS ORDERED: CALCIUM GLUCONATE 2 GM in NS 100 ML IV ONE (14:27)
[2016-12-19 14:46] LABS: PCO2(98.6) 81 mmHg (35-45)
[2016-12-19 14:54] LABS: UR AMPHETAMINES QUAL NONE DETECTED (NONE DETECT); UR BARBITUATES QUAL NONE DETECTED (NONE DETECT); UR BENZODIAZEPIN QUAL NONE DETECTED (NONE DETECT); UR CANNABINOIDS QUAL NONE DETECTED (NONE DETECT); UR COCAINE QUAL NONE DETECTED (NONE DETECT); UR METHADONE QUAL NONE DETECTED (NONE DETECT); UR OPIATES QUAL NONE DETECTED (NONE DETECT); UR OXYCODONE QUAL NONE DETECTED (NONE DETECT); UR PCP QUAL NONE DETECTED (NONE DETECT)
[2016-12-19 15:03] LABS: pH(98.6) < 6.80 (7.35-7.45)
[2016-12-19] MEDS: SODIUM CHLORIDE 0.9% INJ SCH ×2 (15:20→17:49)
[2016-12-19 16:11] LABS: MAGNESIUM 1.5 mg/dL (1.5-2.7)
[2016-12-19 16:14] LABS: BASO% 0.2 % (0.0-0.8); EOS# 0.01 X1000 (0.0-0.7); EOS% 0.1 % (0.0-10.0); HEMATOCRIT 44.3 % (37.0-47.0); HEMOGLOBIN 14.4 g/dL (12.0-16.0); IMM GRAN# 0.07 X1000 (0.0-0.04); IMM GRAN% 0.7 % (0.0-0.5); LYMPH# 0.81 X1000 (1.2-3.4); LYMPH% 8.1 % (20.5-51.1); MANUAL DIFF NEEDED? YES; MCH 31.2 PG (27-31); MCHC 32.5 g/dL (33-37); MCV 96.1 FL (81-99); MONO# 0.35 X1000 (0.11-0.59); MONO% 3.5 % (1.7-9.3); MPV 9.4 FL (7.4-10.4); NEUT% 87.4 % (42.2-75.2); PLT 157 X1000 (130-400); RBC 4.61 XMIL (4.2-5.4)
[2016-12-19 16:23] LABS: ALLEN TEST YES; BE -1.8 mmoll (-3.0-3.0); BLOOD TYPE ARTERIAL; DRAW SITE R RADIAL; METHB 1.5 % (0.0-1.5); O2(CT) 20.8 mL/dL (15.0-23.0); PCO2(98.6) 42 mmHg (35-45); PO2(98.6) 75 mmHg (60-100); SAMPLE BLOOD; SAO2 98.7 % (95.0-100.0); SRATE 20 BPM; THB 15.7 g/dL (11.5-17.4); TVOL 430 mL; pH(98.6) 7.36 (7.35-7.45)
[2016-12-19 16:24] LABS: MODALITY VENTILATOR
[2016-12-19 16:26] LABS: SRATE 20 BPM
[2016-12-19 16:38] LABS: CALCIUM 5.9 mg/dL (8.8-10.2)
[2016-12-19 16:50] LABS: BANDS 14 % (0-1); LYMPHS 16 % (21-51); MONO 2 % (1-9)
[2016-12-19] MEDS ORDERED: HEPARIN ONE (17:15)
[2016-12-19] MEDS: HEPARIN 25,000 UNIT in NS 250 ML IV SCH (17:21)
[2016-12-19] MEDS: SODIUM PHOSPHATE 20 MMOL in NS 250 ML IV PRN (17:49)
[2016-12-19] MEDS ORDERED: NS ONE (17:54)
--- NOTE | 2016-12-19 18:08 | ECHO REPORT ---
ORDER DATE: 12/19/2016 MEASUREMENTS: Left ventricular end-diastolic diameter 3.2, end systolic diameter 2.2, septal thickness 1.4, posterior wall thickness 1.3. Left atrium 2.4, aortic root 3.0. SUMMARY: 1. Fair quality study. Patient on ventilator time of study. 2. Aortic mitral and tricuspid valves are without structural abnormality while pulmonic valve was not well demonstrated. There is trace tricuspid regurgitation. Estimated systolic PA pressure by Doppler is approximately 40 mmHg. The aortic root is normal in size. 3. Normal left ventricular chamber size with moderate concentric left hypertrophy is demonstrated. Estimated left ejection fraction approximately 65-70% without regional wall motion abnormality evident. Doppler suggests grade 1 left ventricular diastolic dysfunction (impaired relaxation). Left atrium, right atrium, and right ventricle are normal size with grossly preserved right ventricular systolic force. 4. No pericardial effusion. 5. Appearance of inferior vena cava suggests normal central venous pressure. CONCLUSIONS: 1. Fair quality study. 2. Mild to moderate pulmonary hypertension by Doppler. 3. Moderate concentric left hypertrophy with estimate left ejection fraction 65-70%. 4. Doppler suggests grade 1 left ventricular diastolic dysfunction.
--- NOTE | 2016-12-19 20:28 | CONSULTATION ---
DATE OF CONSULTATION: 12/19/2016 ICU BED 14. Ms. Barksdale is 61 years old. Admitted earlier today after reportedly being found unconscious at home, respiratory failure, asystole. At this time, she is intubated, mechanically ventilated, cooled, paralyzed and sedated per hypothermia protocol. There appears to be a past history of hypertension and pulmonary condition based on her reported home medicines. I do not know any more definite past medical history. I do not know any past neurologic history regarding previous MAIL DISTRIBUTOR event, stroke, seizure, head injury, ethanol use. Lab work this admission showed WBC count 14,000 initially and then 23,000. She has abnormal blood gases initially which have been mostly corrected. Initial blood sugar reported over 500, later 140s. Initial calcium 8.7, later 5.0(?). Liver enzymes are elevated as expected. We do not have any toxicology screen this admission. She had lab work here in October of this year, a few months ago, with toxicology positive for cannabinoids. Vital signs record this admission shows blood pressures mostly 100s- 120s systolic in recent hours. Heart rate recorded 80s recently, 110s-120s earlier. As above, she has cooled per hypothermia protocol and did not have fever on presentation. Cardiology and Pulmonology consultations have been obtained. Workup is in progress. I do not see order for or report of brain imaging. On examination, Ms. Barksdale is still, motionless, limp. There is no response to minimal noxious stimulation. Plantar response is silent bilaterally. Reflexes are absent throughout. Neck is supple. I did not witness her to appear to trigger the ventilator. IMPRESSION: Recent cardiopulmonary arrest, resuscitation, now heavily sedated and cooled per hypothermia protocol. Nothing much to say from clinical Neurology examination at this time. When she is warmed, we might or might not see evidence of brain injury. No suggestion from a neurologic standpoint right now. Thank you for asking me to see Ms. Barksdale. [facility]ALTH SYSTEMAamir
[2016-12-19] MEDS ORDERED: DOPAMINE 800 MG/D5W 500 ML IV SCH (21:00)
[2016-12-19 22:00] LABS: ALLEN TEST YES; BE 0.3 mmoll (-3.0-3.0); BLOOD TYPE ARTERIAL; DRAW SITE R RADIAL; METHB 1.7 % (0.0-1.5); PCO2(98.6) 38 mmHg (35-45); PO2(98.6) 74 mmHg (60-100); SAMPLE BLOOD; SAO2 98.4 % (95.0-100.0); SRATE 20 BPM; THB 15.8 g/dL (11.5-17.4); TVOL 430 mL; pH(98.6) 7.42 (7.35-7.45)
[2016-12-19 22:01] LABS: MODALITY VENTILATOR
[2016-12-19 22:17] LABS: CALCIUM 7.3 mg/dL (8.8-10.2); POTASSIUM 4.2 mmol/L (3.5-5.1)
[2016-12-20] MEDS: SODIUM BICARBONATE 8.4% 100 MEQ in STERILE WATER INJ. 1,000 ML IV SCH (02:30)
[2016-12-20] MEDS: DUONEB (A & A) INH PRN ×4 (02:32→15:23)
[2016-12-20] MEDS: ATIVAN IV SCH ×3 (03:58→11:44)
[2016-12-20] MEDS: SODIUM CHLORIDE 0.9% INJ SCH (04:03)
[2016-12-20] MEDS: PEPCID IV SCH (04:03)
[2016-12-20] MEDS: ZOSYN 3.375 GM/NS 50 ML IV SCH (04:03)
[2016-12-20] MEDS: HUMULIN R SUBQ SCH ×4 (04:20→21:49)
[2016-12-20 04:23] LABS: ALLEN TEST YES; BLOOD TYPE ARTERIAL; DRAW SITE R RADIAL; METHB 1.7 % (0.0-1.5); MODALITY VENTILATOR; O2(CT) 18.1 mL/dL (15.0-23.0); PCO2(98.6) 32 mmHg (35-45); PO2(98.6) 124 mmHg (60-100); SAMPLE BLOOD; SAO2 99.9 % (95.0-100.0); SRATE 20 BPM; THB 13.3 g/dL (11.5-17.4); TVOL 430 mL; pH(98.6) 7.51 (7.35-7.45)
[2016-12-20] MEDS: LACRI-LUBE OPH OINT BOTH EYES SCH ×2 (04:32→10:11)
[2016-12-20 05:51] LABS: BASO% 0.2 % (0.0-0.8); EOS# 0.01 X1000 (0.0-0.7); EOS% 0.1 % (0.0-10.0); HEMATOCRIT 39.2 % (37.0-47.0); HEMOGLOBIN 13.4 g/dL (12.0-16.0); IMM GRAN# 0.04 X1000 (0.0-0.04); IMM GRAN% 0.3 % (0.0-0.5); LYMPH# 1.02 X1000 (1.2-3.4); LYMPH% 8.4 % (20.5-51.1); MANUAL DIFF NEEDED? YES; MCH 31.8 PG (27-31); MCHC 34.2 g/dL (33-37); MCV 92.9 FL (81-99); MONO# 0.32 X1000 (0.11-0.59); MONO% 2.6 % (1.7-9.3); MPV 10.2 FL (7.4-10.4); NEUT% 88.4 % (42.2-75.2); PLT 127 X1000 (130-400); RBC 4.22 XMIL (4.2-5.4)
[2016-12-20 05:59] LABS: MAGNESIUM 1.9 mg/dL (1.5-2.7); POTASSIUM 3.5 mmol/L (3.5-5.1)
[2016-12-20] MEDS: SODIUM PHOSPHATE 20 MMOL in NS 250 ML IV PRN (06:42)
[2016-12-20] MEDS ORDERED: CALCIUM GLUCONATE 1 GM in NS 50 ML IV ONE (06:47)
[2016-12-20 06:55] LABS: BANDS 10 % (0-1); LYMPHS 11 % (21-51); MONO 3 % (1-9)
[2016-12-20] MEDS: ASPIRIN NG SCH (08:16)
--- NOTE | 2016-12-20 08:17 | Diag Imaging Result Document ---
PROCEDURE NAME: CHEST-1 VIEW - 12/20/2016 SINGLE FRONTAL RADIOGRAPH OF THE CHEST: COMPARISON: 12/19/2016. FINDINGS: ET tube is in stable position. There has been interval placement of a right PICC line. The patient is somewhat rotated. The PICC line tip appears to project over the lower SVC in the expected position. Diffuse bilateral infiltrates, worst on the right, persist. Given slight differences in positioning, they are probably stable. There is perhaps marginal improvement at the right lung apex. No new consolidations identified. Cardiac silhouette is stable. IMPRESSION: Interval placement of right PICC line as described and perhaps marginal improvement of the diffuse infiltrate only at the right lung apex. Otherwise, bilateral infiltrates are stable.
[2016-12-20] MEDS ORDERED: NS 500 ML ONE (09:53)
[2016-12-20] MEDS: ZYVOX 600 MG/D5W 300 ML IV SCH ×2 (10:05→21:35)
[2016-12-20] MEDS: ZOSYN 2.25 GM/NS 50 ML IV SCH ×3 (10:05→21:35)
[2016-12-20] MEDS: D5W 1,000 ML IV SCH ×2 (10:05→23:20)
[2016-12-20 10:23] LABS: ALLEN TEST YES; BE 3.2 mmoll (-3.0-3.0); BLOOD TYPE ARTERIAL; DRAW SITE R RADIAL; METHB 1.3 % (0.0-1.5); O2(CT) 17.3 mL/dL (15.0-23.0); PCO2(98.6) 37 mmHg (35-45); PO2(98.6) 78 mmHg (60-100); SAMPLE BLOOD; SAO2 98.7 % (95.0-100.0); SRATE 20 BPM; THB 12.9 g/dL (11.5-17.4); TVOL 430 mL; pH(98.6) 7.47 (7.35-7.45)
[2016-12-20 10:24] LABS: MODALITY VENTILATOR
[2016-12-20 11:16] LABS: UR CREAT RANDOM 39.4 mg/dL (11-20)
--- NOTE | 2016-12-20 11:21 | Diag Imaging Result Document ---
PROCEDURE NAME: US RENAL 2 (RETROPER) COMPLETE - 12/20/2016 RENAL ULTRASOUND: COMPARISON: None available. FINDINGS: The kidneys are grossly normal in echotexture. No discrete renal mass or hydronephrosis is identified. The right kidney measures 10.8 cm and the left kidney measures 10.3 cm in the greatest longitudinal axes. The right renal cortex measures up to 0.9 cm and the left renal cortex measures up to 1.1 cm in thickness. There is a Moffett catheter in the urinary bladder and the bladder is nondistended. IMPRESSION: Grossly unremarkable renal ultrasound.
[2016-12-20 11:56] LABS: CALCIUM 7.1 mg/dL (8.8-10.2); POTASSIUM 3.3 mmol/L (3.5-5.1)
--- NOTE | 2016-12-20 13:21 | PROGRESS NOTE ---
DATE: 12/20/2016 Ms. Barksdale continues to be nonresponsive. Sedation has been turned off but she is still on Fentanyl but paralytics have been turned off. She is currently on the ventilator. PHYSICAL EXAMINATION: She is currently in the rewarming period so she has not been febrile. Heart rate is in the low 110s, blood pressure 173/91 most recently, but she at time of my examination was in the 90s systolic. Currently on dopamine. General: No acute distress. Again, she is still sedated. Cardiovascular: She is in a mildly tachycardic and regular rhythm that corresponded to sinus tachycardia on the monitor. She has no lower extremity edema. Her chest exam had coarse bilateral breath sounds noted diffusely. No increased work of breathing. Abdomen: Soft, nontender. Bowel sounds were heard. DATA: White count is 12, hematocrit 39.2, platelet count 127,000. She does have a left shift with a bandemia. ABG showed a pH of 7.47. Sodium is 153, potassium 3.3, BUN 38, creatinine 1.9 which is increased from 1.2 on the . ASSESSMENT: Status post pulseless electrical activity arrest. PLAN: Patient has been placed on heparin per Dr. Prado. I do not have the results back from the lower extremity Dopplers. Would continue with supportive care. The patient is currently in the active rewarming period. Sodium is noted to be high. She has been switched over to D5W per the primary team. We will continue to follow.
--- NOTE | 2016-12-20 13:23 | PROGRESS NOTE ---
DATE: 12/20/2016 SUBJECTIVE: Today, Ms. Barksdale continues to be stable on the ventilator with critical care management. Per the nurse, there was a call yesterday that she has a DVT in the left leg; however, the official report is not yet out. The patient is currently on a heparin drip. OBJECTIVE: Vital signs: Blood pressure is 104/69, pulse 69, respirations 20, temperature 94.4 degrees. General: Ms. Barksdale is a 61-year-old female. She is in bed, paralyzed, and on the ventilator. HEENT: Mucosa is pink and moist. Anicteric. Acyanotic. Neck: Supple. Chest: Air entry is bilaterally reduced. There are diffuse inspiratory and expiratory rhonchi and also coarse crackles. Cardiovascular: Regular rate and rhythm. No murmurs. No rubs. No gallops. Abdomen: Soft. Extremities: No pedal edema. TACKING MACHINE OPERATOR: Patient continues to be paralyzed. The pupils are dilated, about 2.5 to 3 mm bilateral , nonreactive, and patient has no gag. Of course patient is currently on paralytics, so we cannot evaluate that in much detail. The right upper extremity at the wrist is slightly swollen. It is tight. I think that is where arterial blood gases were done. LABORATORY DATA: WBC is 12.08, hemoglobin is 13.4, platelet count of 127,000. There is 10% of bands on the peripheral smear. Sodium is 152, potassium is 3.5, chloride is 114 , creatinine is 1.8, glucose is 137. A chest x-ray done this morning shows interval placement of PICC line, marginal improvement of the diffuse infiltrates only at the right apex. Otherwise, bilateral infiltrates stable. ABG this morning showed pH 7.51, pCO2 of 32, PaO2 of 125, and bicarbonate was 27.25. ASSESSMENT: 1. Status post cardiac arrest. Patient is currently on the hypothermia protocol in the phase of rewarming. I think this should be done around 10 today, and we will re- evaluate and see how she is doing. 2. Diffuse bilateral lung infiltrates (ARDS) likely from aspiration pneumonia. Patient is currently on the ventilator and getting antibiotics. 3. Hyperglycemia on presentation. This is controlled. Patient is on insulin sliding scale. We really do not have any history, so we will do an A1c to see if she has been diabetic. 4. Mixed alkalosis. The patient does have both respiratory and metabolic alkalosis. She came in severely acidotic. I think she was getting bicarbonate, so will discontinue that. 5. Hypernatremia. We will discontinue the bicarbonate, sterile water. We will going to use only D5 to help with her free water necessities. 6. Transaminitis due to ischemic hepatopathy. 7. Elevated troponins on presentation, likely due to hypoxemic cardiac injury. 8. Acute kidney injury. The creatinine seems to be worsening. I think this is acute tubular necrosis from hypoperfusion during the arrest. We will, however, go ahead and do the urine studies and order renal ultrasound, and consult Nephrology. 9. TSH abnormality. The patient has a remarkably low TSH. We will do a free T4 and see if there is any correlation, if patient is hyperthyroid. I do not see any thyroid supplement medication that the patient was on which could be iatrogenic abnormality, so we will repeat the laboratory test and go from there. 10. DVT in lower extremity. Heparin drip has been started. Continue the protocol. I have discussed the plan with both the family members and the nurse. [email or web address]
[2016-12-20] MEDS ORDERED: SODIUM CHLORIDE 0.9% INJ SCH (13:45)
[2016-12-20] MEDS ORDERED: HEPARIN ONE (15:34)
[2016-12-20 15:43] LABS: POTASSIUM 3.1 mmol/L (3.5-5.1)
[2016-12-20 15:51] LABS: CALCIUM 6.8 mg/dL (8.8-10.2)
[2016-12-20] MEDS ORDERED: POTASSIUM CHLORIDE 40 MEQ/SWI 100 ML IV ONE (15:53)
[2016-12-20] MEDS ORDERED: CALCIUM GLUCONATE 2 GM in NS 100 ML IV ONE (15:55)
[2016-12-20] MEDS ORDERED: PROTONIX IV SCH (17:00)
[2016-12-20 17:01] LABS: BLOOD TYPE ARTERIAL; SAMPLE BLOOD
[2016-12-20 17:02] LABS: PCO2(98.6) 46 mmHg (35-45); PO2(98.6) 71 mmHg (60-100); pH(98.6) 7.38 (7.35-7.45)
[2016-12-20 17:03] LABS: BE 1.6 mmoll (-3.0-3.0); METHB 1.5 % (0.0-1.5); O2(CT) 28.6 mL/dL (15.0-23.0); SAO2 97.2 % (95.0-100.0); THB 93.1 g/dL (11.5-17.4)
[2016-12-20 17:04] LABS: ALLEN TEST YES; DRAW SITE R RADIAL; MODALITY VENTILATOR; SRATE 20 BPM; TVOL 430 mL
--- NOTE | 2016-12-20 17:14 | PROGRESS NOTE ---
DATE: 12/20/2016 SUBJECTIVE: Ms. Barksdale is warmed, all sedatives off. She remains motionless. She is not triggering the ventilator. There is no definite lateral eye movement with passive head turning. I do not see definite pupil response to bright light bilaterally. There is no corneal reflex. Limb tone is symmetric. There was no movement in response to noxious stimulation over the limbs. 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 Clinically, I do not see evidence of central nervous system function. I discussed that frankly with limited family available now. Son and daughter were not present for discussion and they are the next of kin. I do not have any suggestion from neurologic standpoint. Thanks for asking me to see Ms. Barksdale.
[2016-12-20] MEDS: HEPARIN 25,000 UNIT in NS 250 ML IV SCH (19:32)
[2016-12-21] MEDS: ZOSYN 2.25 GM/NS 50 ML IV SCH ×2 (04:00→09:22)
[2016-12-21] MEDS: HUMULIN R SUBQ SCH (04:05)
[2016-12-21 04:31] LABS: ALLEN TEST YES; BE 0.7 mmoll (-3.0-3.0); BLOOD TYPE ARTERIAL; DRAW SITE R RADIAL; METHB 1.3 % (0.0-1.5); O2(CT) 15.3 mL/dL (15.0-23.0); PCO2(98.6) 40 mmHg (35-45); PO2(98.6) 105 mmHg (60-100); SAMPLE BLOOD; SAO2 99.9 % (95.0-100.0); SRATE 20 BPM; THB 11.2 g/dL (11.5-17.4); TVOL 430 mL; pH(98.6) 7.41 (7.35-7.45)
[2016-12-21 04:32] LABS: MODALITY VENTILATOR
[2016-12-21 05:02] LABS: HEMOGLOBIN A1C 4.8 % (4.8-6.0)
[2016-12-21 05:25] LABS: ALBUMIN 2.1 g/dL (3.5-5.0); CALCIUM 7.2 mg/dL (8.8-10.2); POTASSIUM 3.9 mmol/L (3.5-5.1); TOTAL BILIRUBIN 1.08 mg/dL (0.20-1.00); TOTAL PROTEIN 5.1 g/dL (6.3-8.3)
[2016-12-21 05:32] LABS: BASO% 0.3 % (0.0-0.8); EOS# 0.05 X1000 (0.0-0.7); EOS% 0.5 % (0.0-10.0); HEMATOCRIT 33.7 % (37.0-47.0); HEMOGLOBIN 10.9 g/dL (12.0-16.0); IMM GRAN# 0.07 X1000 (0.0-0.04); IMM GRAN% 0.7 % (0.0-0.5); LYMPH% 16.5 % (20.5-51.1); MANUAL DIFF NEEDED? YES; MCH 31.1 PG (27-31); MCHC 32.3 g/dL (33-37); MONO# 0.42 X1000 (0.11-0.59); MONO% 4.1 % (1.7-9.3); MPV 10.7 FL (7.4-10.4); NEUT% 77.9 % (42.2-75.2); PLT 111 X1000 (130-400); RBC 3.51 XMIL (4.2-5.4)
[2016-12-21 06:18] LABS: BANDS 12 % (0-1); LYMPHS 16 % (21-51); MONO 6 % (1-9)
--- NOTE | 2016-12-21 07:40 | Diag Imaging Result Document ---
PROCEDURE NAME: CHEST-1 VIEW - 12/21/2016 PORTABLE CHEST X-RAY, 12/21/2016: COMPARISON: 12/20/2016. FINDINGS: Stable support lines and tubes in good position. No change in the diffuse bilateral infiltrates. Stable cardiomegaly. There is probably body wall edema. IMPRESSION: No change from prior.
[2016-12-21 07:44] VITALS: BP 132/87
[2016-12-21] MEDS: DUONEB (A & A) INH PRN (07:48)
[2016-12-21] MEDS: ASPIRIN NG SCH (08:18)
[2016-12-21] MEDS: D5W 1,000 ML IV SCH (08:18)
[2016-12-21] MEDS: ZYVOX 600 MG/D5W 300 ML IV SCH (09:22)
--- NOTE | 2016-12-21 10:40 | PROGRESS NOTE ---
DATE: 12/21/2016 SUBJECTIVE: This morning, Ms. Barksdale remains unresponsive even after the sedatives and paralytics have been discontinued for over 24 hours. OBJECTIVE: Vital Signs: Blood pressure is 132/87, pulse of 79, respirations are 20, temperature is 95.1 degrees. General Examination: Ms. Barksdale is a 61-year-old, female. She is in bed, completely unresponsive. HEENT: Mucosa is pink and moist. Anicteric and acyanotic. Neck: Neck is supple. Chest: Air entry is bilaterally reduced. There is hoarse rhonchi bilaterally and some crepitations. Cardiovascular: Regular rate and rhythm. No murmurs. No rubs. Abdomen: Soft. Bowel sounds are hypoactive. Extremities: Mild pedal edema. UPS DRIVER: The patient is completely unresponsive, even to very extremely painful stimuli. There is no corneal reflex. Pupils are dilated and they are unresponsive. There is no tracking of the eyeball with head movement and there is no gag reflex. Laboratory Data: Has been reviewed. Liver function is slightly improving. Creatinine is getting worse. A chest x-ray was done today which shows no change from prior, stable cardiomegaly, stable body wall edema. ASSESSMENT: 1. Status post cardiac arrest. At this point, the patient was initially started on the hypothermia protocol. This finished yesterday at about 10. Since then, the patient has not had any sedatives. 2. Brain . There is not any brain function activity. No cranial nerve activity and no cortical function. I did make it clear to the family members that at this point, I do not think patient has any activity going on and from all practical purposes, she is brain . The agreed with stopping the care. They agree to terminate care and extubate the patient. 3. Hypernatremia, resolving. 4. Acute kidney injury, likely due to acute atubular necrosis from hypoperfusion during the arrest, worsening. 5. Deep venous thrombosis in lower extremities. Patient continues to be on the heparin protocol. 6. Transaminitis due to ischemic hepatopathy. 7. Acute respiratory failure with acute respiratory distress syndrome, likely from aspiration pneumonia. PLAN: Patient seems to be in multiorgan failure this morning. Evaluation is consistent with brain . The family members want to withdraw care. We will therefore order to extubate the patient, stop all of the fluids and the pressors, and observe the patient after the care has been stopped. Organ transplant has been contacted. They are here. They are going to discuss with the family members and they will let us know when to go ahead and extubate. ADIA
== END 2016-12-21 11:57 | disposition expired | DRG 871 ==
LOC: P.ED 23:12 → ICU 12-19 01:59
PROVIDERS: ATTEND Internal Medicine
PROC: 5A12012 Performance of Cardiac Output, Single, Manual (ICD-10-PCS; principal; 2016-12-19)
PROC: 5A1945Z Respiratory Ventilation, 24-96 Consecutive Hours (ICD-10-PCS; 2016-12-19)
PROC: 02HV33Z Insertion of Infusion Device into Superior Vena Cava, Percutaneous Approach (ICD-10-PCS; 2016-12-19)
PROC: 0BH17EZ Insertion of Endotracheal Airway into Trachea, Via Natural or Artificial Opening (ICD-10-PCS; 2016-12-19)
PROC: 5A12012 Performance of Cardiac Output, Single, Manual (ICD-10-PCS; 2016-12-19)
DX: A41.9 Sepsis, unspecified organism (principal); I46.9 Cardiac arrest, cause unspecified; J96.00 Acute respiratory failure, unspecified whether with hypoxia or hypercapnia; K72.00 Acute and subacute hepatic failure without coma; N17.0 Acute kidney failure with tubular necrosis; J69.0 Pneumonitis due to inhalation of food and vomit; J44.1 Chronic obstructive pulmonary disease with (acute) exacerbation; E87.4 Mixed disorder of acid-base balance; E87.0 Hyperosmolality and hypernatremia; I82.402 Acute embolism and thrombosis of unspecified deep veins of left lower extremity; R65.20 Severe sepsis without septic shock; R73.9 Hyperglycemia, unspecified; F17.210 Nicotine dependence, cigarettes, uncomplicated; R94.6 Abnormal results of thyroid function studies; I10 Essential (primary) hypertension
CPT/HCPCS: 36569; 51702; 71010; 76770; 80048; 80053; 81001; 82150; 82550; 82570; 82805; 82948; 83036; 83690; 83735; 83880; 83935; 84100; 84300; 84439; 84443; 84484; 85025; 85610; 85730; 87040; 87070; 87077; 87088; 87205; 92950; 93005; 93010; 93306; 93970; 94002; 94003; 94640; 94761; 94762; 96365; 96366; 96375; C9113; G0480; J0171; J0610; J1265; J1644; J1815; J1940; J2020; J2060; J2405; J2543; J3010; J3370; J3475; J3480; J7030; J7040; J7050; J7070; 80324; 80345; 80346; 80349; 80353; 80358; 80361; 80365; 83992; 99285-25; S0028; S0164